=== PATIENT | female | born 1975 ===

== ENCOUNTER 2020-05-05 06:39 | Inpatient (IN) | payer MEDICARE, OTHER, SELFPAY ==
--- NOTE | 2020-05-05 | US_ITS ---
EXAMINATION: US ABDOMEN LIMITED CLINICAL INFORMATION: Right upper quadrant pain, question cholecystitis. COMPARISON: None TECHNIQUE: Real-time imaging of the right upper quadrant abdominal viscera. FINDINGS: PANCREAS: Unremarkable. LIVER: Unremarkable. GALLBLADDER: Gallstones are seen near the neck measuring 2.0 cm. A probable smaller stone measures 1.1 cm. There is no mural thickening or pericholecystic fluid. Common tail artifact is seen off of the superficial margin of the gallbladder COMMON BILE DUCT: Normal in caliber measuring 0.6 cm in diameter. RIGHT KIDNEY: 11.6 cm. An interpolar anechoic cyst measures 6.8 cm. Color Doppler showed no abnormal vascular flow. FREE FLUID: None. IMPRESSION: 1. Gallstones in the gallbladder neck do not appear significantly multiple, but the gallbladder is not significantly dilated and there is no evidence for acute cholecystitis. If the patient's symptoms persist or worsen, short-term repeat right upper quadrant ultrasound is recommended as clinically indicated to assess for change. Mild mural based artifact suggests incidental mild cholesterolosis. 2. Right renal cyst demonstrates benign features.
[2020-05-05 07:11] VITALS: BP 141/87; PULSE 108; RESP 18; TEMP 37; O2SAT 99; BMI 34.3
--- NOTE | 2020-05-05 07:11 | ED.ABDPAIN ---
HPI - Abdominal Pain General Chief Complaint: Abdominal Pain Stated Complaint: NAUSEA/VOMITING SIDE PAIN Time Seen by Provider: 05/05/20 07:10 Source: patient Mode of arrival: ambulatory Limitations: no limitations History of Present Illness HPI narrative: Patient with no prior abdominal pain history , been vomiting for last 4 days with pain in right upper quadrant patient denies any history of gallstones. Has history of kidney stone nonobstructive. No diarrhea no fever no chills no abdominal distension no yellow discoloration. For last 24 hour patient noticed she is not urinating as that much and has slight pain when she urinate Pertinent past history: none Onset (ago): day(s) (4) Pain Consistency: intermittent Location: RUQ Severity: moderate Quality: cramping Migration to: no migration Exacerbating factors: eating Relieving factors: nothing Associated symptoms: nausea and vomiting Related Data Patient : No Allergies Allergy/AdvReac Type Severity Reaction Status Date / Time No Known Allergies [NKA] Allergy Mild NOT Unverified 04/17/20 15:01 APPLICABLE Review of Systems Review of Systems . Constitutional : No Weight loss, No Fever, No Chills, No Night Sweats, No Fatigue, No Malaise ENT/Mouth : No Hearing loss, No Ear Pain, No Nasal Congestion, No Sinus Pain, No Hoarseness, No sore throat, No Rhinorrhea, No Swallowing Difficulty Eyes: No Eye Pain, No Swelling, No Redness, No Foreign Body, No Discharge, No Vision Changes Cardiovascular : No Chest Pain, No SOB, No Dyspnea on Exertion, No Orthopnea, No Edema, No Palpitations Respiratory : No Cough, No Sputum, No Wheezing, No Smoke Exposure, No Dyspnea Gastrointestinal : Positive Nausea, Positive Vomiting, -ve Diarrhea, positive abdominal Pain, No Hematochezia, No Melena Genitourinary : no irregular bleeding, No Dysuria, No Urinary Frequency, No Hematuria, No Urinary Incontinence, No Urgency, No Flank Pain, No Urinary Flow Changes, No Hesitancy Musculoskeletal : No joint pain, No Myalgias, No Joint Swelling Skin : No Skin Lesions, No rash Neuro : No Weakness, No Numbness, No Paresthesias, No Loss of Consciousness, No Dizziness, No Headache Psych : No Anxiety/Panic, No Depression, No SI/HI/AH/VH, No Social Issues, Heme/Lymph: No Bruising, No Bleeding,No Lymphadenopathy Endocrine : No Polyuria, No Polydipsia, No Temperature Intolerance Yes all other systems are reviewed and are negative Physical Exam Vital Signs and I&O and Narrative: Vital Signs and I&O: Vital Signs Temp 98.6 F 05/05/20 07:11 Pulse 83 05/05/20 10:57 Resp 16 05/05/20 10:57 BP 135/77 05/05/20 10:57 Pulse Ox 97 05/05/20 10:57 Intake & Output 05/04/20 05/05/20 05/05/20 18:59 06:59 18:59 Intake Total 1000 / 1000 Balance 1000 / 1000 Weight 79.832 kg Intake: Intake, IV Amoun t 1000 / 1000 0.9 % Sodium C hloride 1,000 ml 1000 / 1000 @ 999 mls/hr I VCONT .Q1H1M [facility] Rx#:[id number] Body Mass Index 34.3 Const: General: cooperative Nutritional Appearance: average body habitus Orientation/consciousness: oriented to person, oriented to place and oriented to time Limitations: no limitations HENMT: Head: Yes normal to inspection Ears: hearing grossly normal bilaterally Face and sinus: Yes normal facial exam Eyes: Conjunctivae: conjunctivae normal Sclerae: sclerae normal Resp: Effort & Inspection: normal respiratory effort Auscultation: clear to auscultation bilaterally Cardio: Palpation: normal PMI Rate: regular rate Rhythm: regular rhythm Heart sounds: S1 normal heart sound present and S2 normal heart sound present GI: Inspection: Yes normal to inspection Palpation (GI): Soft to palpation and Tenderness to palpation present (GI) in the RUQ; Bryan's sign negative and with no rebound tenderness Percussion: Yes normal to percussion Auscultation: normal bowel sounds : General: No CVA tenderness Back/Spine/Pelvis: Back: No CVA tenderness Neuro: General: oriented to person, oriented to place and oriented to time Course Course Course Narrative: patient ultrasound showed 2.0 cm gallstone sitting at the neck without significant obstruction at this time no signs of cholecystitis in the ultrasound LFTs are normal patient white counts are elevated and she is on prednisone but no change in dosage lately her usual white counts her around 12,000 and this time was 18,000. No fever no chills. patient been having increased pain for last 48 hours did did not eat anything since 16:00 yesterday and would like the surgery done if indicated. Case discussed with Dr. La surgeon will come and evaluate the patient MDM - Abdominal Pain MDM Narrative Medical decision making narrative: patient with vomiting for last 4 days with pain in right upper quadrant with no prior history of similar episodes. Withdrew the labs including liver functions and lipase. Will give IV fluids morphine for pain Zofran for nausea/vomiting will get ultrasound to rule out cholecystitis Differential Diagnosis Differential diagnosis: Likely gastroenteritis and gastritis Differential diagnosis narrative:: cholelithiasis/cholecystitis Lab Data Result diagrams: 05/05/20 07:26 05/05/20 07:26 Labs: Lab Results 05/05/20 05/05/20 05/05/20 Range/Units 07:26 07: 08:20 WBC 18.5 H (4.8-10.8) X10*3/uL RBC 4.99 (4.20-5.50) X10*6/uL Hgb 13.2 (12.0-16.0) g/dl Hct 40.9 (37-47) % MCV 82.0 (80-98) fL MCH 26.5 L (27.0-33.0) pg MCHC 32.3 (31.0-35.0) g/dl RDW 14.4 (11.0-16.0) % Plt Count 381 (160-400) X10*3/uL MPV 9.3 L (9.4-12.3) fL Immature Gran % (Auto) 0.6 H (0.0-0.4) % Neut % (Auto) 74.5 H (45-73) % Lymph % (Auto) 14.6 L (20-40) % [place] % (Auto) 8.4 (2-11) % Eos % (Auto) 1.2 (0-4) % Baso % (Auto) 0.7 (0-2) % Neut # (Auto) 13.8 H (2.0-8.3) X10*3/uL Lymph # (Auto) 2.7 (1.2-4.9) X10*3/uL [place] # (Auto) 1.6 H (0.1-1.2) X10*3/uL Eos # (Auto) 0.2 (0.0-0.4) X10*3/uL Baso # (Auto) 0.1 (0.0-0.2) X10*3/uL Abs Immat Gran (auto) 0.11 H (0.00-0.03) X10*3/uL Absolute Nucleated RBC 0.000 (0.0-0.012) X10*3/uL Nucleated RBC % (auto) 0.0 (0.0-0.2) /100WBC Smear Tech's Comments VERIFIED Sodium 138 (135-145) mmol/L Potassium 3.6 (3.3-5.1) mmol/l Chloride 105 (96-108) mmol/L Carbon Dioxide 22 (22-29) mmol/L Anion Gap 15 (12-20) BUN 11 (9-16) mg/dL Creatinine 0.66 (0.5-1.4) mg/dL Estim Creat Clear Calc 101.7 Estimated GFR > 60 Random Glucose 115 (60-115) mg/dL Calcium 8.8 (8.4-10.2) mg/dL Total Bilirubin 0.3 (0.0-1.0) mg/dL Direct Bilirubin < 0.2 (0.0-0.5) mg/dL AST 18 (5-31) U/L ALT 20 (0-31) U/L Alkaline Phosphatase 52 (39-117) U/L Total Protein 6.8 (6.5-8.0) g/dL Albumin 4.2 (3.5-5.0) g/dL Lipase 10 (8-78) U/L Urine Color STRAW Urine Appearance CLEAR Urine pH 6.5 (5.0-8.0) Ur Specific [place] 1.015 (1.005-1.025) Urine Protein NEG (NEG-TRACE) MG/DL Urine Glucose (UA) NEG (NEG) MG/DL Urine Ketones NEG (NEG) MG/DL Urine Blood 3+ H (NEG) Urine Nitrite NEG (NEG) Ur Leukocyte Esterase NEG (NEG) Urine RBC 1-4 (0) /HPF Urine WBC 0-2 (0-4) /HPF Ur Squamous Epith Cells TRACE /LPF Discharge Plan Discharge Clinical Impression: Biliary colic Cholelithiasis Qualifiers: Cholelithiasis location: gallbladder Cholecystitis presence: without cholecystitis Biliary obstruction: without biliary obstruction Qualified Code(s): K80.20 - Calculus of gallbladder without cholecystitis without obstruction Patient Disposition: Admitted As Inpatient Print Language: Tamazight [facility] Past Medical History Attestation statement: The following information was validated with the patient. Source: nursing notes reviewed Medical History Fibromyalgia Polymyositis Sleep apnea Social History Social History Smoked in Last 30 Days: No Use of substances other than those prescribed or required for medical reasons: No Advance Directives: No Advance Directives Information Provided: Yes
[2020-05-05 07:31] LABS: Basophils Absolute Auto 0.1 X10*3/uL (0.0-0.2); Basophils Percent Auto 0.7 % (0-2); Eosinophils Absolute Auto 0.2 X10*3/uL (0.0-0.4); Eosinophils Percent Auto 1.2 % (0-4); Hematocrit 40.9 % (37-47); Hemoglobin 13.2 g/dl (12.0-16.0); Imm Gran Abs Auto 0.11 X10*3/uL (0.00-0.03); Imm Gran Pct Auto 0.6 % (0.0-0.4); Lymphocytes Absolute Auto 2.7 X10*3/uL (1.2-4.9); Lymphocytes Percent Auto 14.6 % (20-40); MANUAL DIFF FLAG SCAN; Mean Corpuscular HGB Conc 32.3 g/dl (31.0-35.0); Mean Corpuscular Hemoglobin 26.5 pg (27.0-33.0); Mean Platelet Volume 9.3 fL (9.4-12.3); Monocytes Absolute Auto 1.6 X10*3/uL (0.1-1.2); Monocytes Percent Auto 8.4 % (2-11); Neutrophils Absolute Auto 13.8 X10*3/uL (2.0-8.3); Neutrophils Percent Auto 74.5 % (45-73); Platelet Count 381 X10*3/uL (160-400); Red Blood Count 4.99 X10*6/uL (4.20-5.50); Red Cell Distribution Width 14.4 % (11.0-16.0); SCAN SMEAR FLAG 1; White Blood Count 18.5 X10*3/uL (4.8-10.8)
[2020-05-05] MEDS: 0.9 % Sodium Chloride 1,000 ML 999 ML IVCONT (07:37)
[2020-05-05] MEDS: ondansetron HCL 4 MG/2 ML VIAL IVPUSH (07:38)
[2020-05-05] MEDS: Morphine Sulfate 4 MG/ML CARTRIDGE IVPUSH (07:38)
[2020-05-05 08:02] LABS: SLIDE REVIEW VERIFIED
[2020-05-05 08:03] LABS: Alanine Aminotransferase 20 U/L (0-31); Albumin Level 4.2 g/dL (3.5-5.0); Alkaline Phosphatase 52 U/L (39-117); Anion Gap 15 (12-20); Aspartate Amino Transferase 18 U/L (5-31); Bilirubin Direct < 0.2 mg/dL (0.0-0.5); Bilirubin Total 0.3 mg/dL (0.0-1.0); Blood Urea Nitrogen 11 mg/dL (9-16); Calcium 8.8 mg/dL (8.4-10.2); Carbon Dioxide 22 mmol/L (22-29); Chloride 105 mmol/L (96-108); Creatinine Clr Calc Pharmacy 101.7; Estimated Glomerular Filt Rate > 60; Glucose Random 115 mg/dL (60-115); Lipase 10 U/L (8-78); Potassium 3.6 mmol/l (3.3-5.1); Sodium 138 mmol/L (135-145); Total Protein 6.8 g/dL (6.5-8.0)
[2020-05-05 08:10] VITALS: BP 133/95
[2020-05-05 08:30] LABS: Glucose Urine UA NEG (NEG); Leukocyte Esterase Urine NEG (NEG); Nitrite Urine NEG (NEG); PH 6.5 (5.0-8.0); Specific Gravity - Urine 1.015 (1.005-1.025); Urine Blood 3+ (NEG); Urine Ketones NEG (NEG); Urine Protein NEG (NEG-TRACE)
[2020-05-05 08:33] LABS: Appearance Urine CLEAR; Color Urine STRAW
[2020-05-05 08:50] LABS: Squamous Epithelial Cell Urine TRACE /LPF; WBC Urine 0-2 /HPF (0-4)
--- NOTE | 2020-05-05 09:53 | PC.NURSE ---
DR JC IN TO SEE PT. PLAN IS TO CONSULT WITH SURGERY FOR GALL-STONES.
[2020-05-05 10:57] VITALS: BP 135/77; PULSE 83; RESP 16; O2SAT 97
--- NOTE | 2020-05-05 12:04 | P.HPGS_ITS ---
History of Present Illness History of Present Illness Chief complaint: NAUSEA/VOMITING SIDE PAIN <EBONY Cardona Last Filed: 05/05/20 12:59> Narrative: Bridget Renae is a 45 year old female who presented to the ED with complaints of RUQ abdominal pain, nausea and vomiting. This began last night. The pain woke her up out of sleep. She developed nausea and had multiple episodes of vomiting afterwards. The pain was sharp and radiated to her back. She denies fevers, chills, sick contacts. She began to feel better on Tuesday but developed the pain again on Tuesday and it progressively worsened prompting her to seek care in the ED. Work up revealed a WBC count of 18.5 with normal LFTs. She also had an ABD US which showed gallstones at the gallbladder neck without signs of acute cholecystitis. She reports persistence of the pain despite pain medications. She denies previous episodes of similar pain. <EBONY Cardona Last Filed: 05/05/20 12:59> Review of Systems Constitutional: Constitutional: Denies chills, Denies fever(s) and Reports weakness <EBONY Cardona Last Filed: 05/05/20 12:59> ENT: Reports dizziness <EBONY Cardona Last Filed: 05/05/20 12:59> Cardiovascular: Cardiovascular: Denies chest pain, Denies palpitations and Denies dyspnea <EBONY Cardona Last Filed: 05/05/20 12:59> Respiratory: Respiratory: Denies cough and Denies dyspnea <EBONY Cardona Last Filed: 05/05/20 12:59> Gastrointestinal: Gastrointestinal: Reports as per HPI, Denies melena, Denies hematochezia and Denies hematemesis <EBONY Cardona Last Filed: 05/05/20 12:59> Genitourinary: Genitourinary: Denies hematuria and Denies dysuria <EBONY Cardona Last Filed: 05/05/20 12:59> Musculoskeletal: Musculoskeletal: Denies numbness <YOLANDA Cardona Last Filed: 05/05/20 12:59> Integumentary/Breasts: Skin/Breast: Denies jaundice <Mary Owen PA-C - Last Filed: 05/05/20 12:59> Neurologic: Reports dizziness, Denies numbness and Reports weakness <Mary Owen PA-C - Last Filed: 05/05/20 12:59> Endocrine: Endocrine: Denies palpitations <Mary Owen PA-C - Last Filed: 05/05/20 12:59> PMFSH Past Medical History Medical History: Medical History (Updated 05/05/20 @ 14:51 by Antonio La MD) Fibromyalgia Polymyositis Sleep apnea <EBONY Cardona Last Filed: 05/05/20 12:59> Family History Pertinent family history: Denies <Mary Owen PA-C - Last Filed: 05/05/20 12:59> Surgical History Surgical History: Surgical History (Updated 05/05/20 @ 12:37 by Mary Owen PA-C) H/O dilation and curettage History of tubal ligation <EBONY Cardona Last Filed: 05/05/20 12:59> Social History Social History: Social History Smoked in Last 30 Days: No Use of substances other than those prescribed or required for medical reasons: No Advance Directives: No Advance Directives Information Provided: Yes <EBONY Cardona Last Filed: 05/05/20 12:59> Meds Allergies/Adverse reactions: Allergies Allergy/AdvReac Type Severity Reaction Status Date / Time No Known Allergies [NKA] Allergy Mild NOT Unverified 04/17/20 15:01 APPLICABLE <EBONY Cardona Last Filed: 05/05/20 12:59> Home medications: Home Medications Medication Instructions Recorded Confirmed Type clotrimazole 10 mg PO 5XD 05/05/20 05/05/20 History prednisone 10 mg PO DAILY 05/05/20 05/05/20 History <EBONY Cardona Last Filed: 05/05/20 12:59> Physical Exam Vital Signs and I&O and Narrative: Vital Signs and I&O: Vital Signs Temp 98.6 F 05/05/20 07:11 Pulse 83 05/05/20 10:57 Resp 16 05/05/20 10:57 BP 135/77 05/05/20 10:57 Pulse Ox 97 05/05/20 10:57 Intake & Output 05/04/20 05/05/20 05/05/20 18:59 06:59 18:59 Intake Total 1000 / 1000 Balance 1000 / 1000 Weight 176 lb Intake: Intake, IV Amoun t 1000 / 1000 0.9 % Sodium C hloride 1,000 ml 1000 / 1000 @ 999 mls/hr I VCONT .Q1H1M [facility] Rx#:[id number] Body Mass Index 34.3 <Mary Owen PA-C Last Filed: 05/05/20 12:59> Const: General: comfortable, no acute distress and alert <Mary Owen PA-C Last Filed: 05/05/20 12:59> Nutritional Appearance: well nourished <Mary Owen PA-C Last Filed: 05/05/20 12:59> Orientation/consciousness: patient oriented x3 <Mary Owen PA-C Filed: 05/05/20 12:59> Eyes: Sclerae: sclerae normal <Mary Owen PA-C Filed: 05/05/20 12:59> Neck: Neck: Yes normal visual inspection and Yes trachea midline <Mary Owen PA-C Last Filed: 05/05/20 12:59> Resp: Effort & Inspection: normal respiratory effort <Mary Owen PA-C Filed: 05/05/20 12:59> Auscultation: clear to auscultation bilaterally <Mary Owen PA-C Last Filed: 05/05/20 12:59> Cardio: Rate: regular rate <EBONY Cardona Filed: 05/05/20 12:59> Rhythm: regular rhythm <Mary Owen PA-C Filed: 05/05/20 12:59> GI: Palpation (GI): Soft to palpation, Tenderness to palpation present (GI) in the RUQ and Bryan's sign positive, no guarding, not rigid and No Rebound tenderness present <EBONY Cardona Last Filed: 05/05/20 12:59> Skin: General skin exam: no rashes or lesions noted and no jaundice <EBONY Cradona Last Filed: 05/05/20 12:59> Neuro: General: patient oriented x3 and moves all extremities <EBONY Cardona Last Filed: 05/05/20 12:59> Extrem: General: Yes no clubbing, cyanosis or edema <EBONY Cardona Last Filed: 05/05/20 12:59> Results Results Labs: Short CBC 05/05/20 Range/Units 07:26 WBC 18.5 H (4.8-10.8) X10*3/uL Hgb 13.2 (12.0-16.0) g/dl Hct 40.9 (37-47) % Plt Count 381 (160-400) X10*3/uL BMP 05/05/20 07:26 Sodium 138 Potassium 3.6 Chloride 105 Carbon Dioxide 22 BUN 11 Creatinine 0.66 Calcium 8.8 Liver Function 05/05/20 Range/Units 07:26 Total Bilirubin 0.3 (0.0-1.0) mg/dL Direct Bilirubin < 0.2 (0.0-0.5) mg/dL AST 18 (5-31) U/L ALT 20 (0-31) U/L Alkaline Phosphatase 52 (39-117) U/L Albumin 4.2 (3.5-5.0) g/dL Urine 05/05/20 Range/Units 08:20 Urine Color STRAW Urine Appearance CLEAR Urine pH 6.5 (5.0-8.0) Ur Specific [place] 1.015 (1.005-1.025) Urine Protein NEG (NEG-TRACE) MG/DL Urine Glucose (UA) NEG (NEG) MG/DL ABD US IMPRESSION: 1. Gallstones in the gallbladder neck do not appear significantly multiple, but the gallbladder is not significantly dilated and there is no evidence for acute cholecystitis. If the patient's symptoms persist or worsen, short-term repeat right upper quadrant ultrasound is recommended as clinically indicated to assess for change. Mild mural based artifact suggests incidental mild cholesterolosis. 2. Right renal cyst demonstrates benign features. <EBONY Cardona Last Filed: 05/05/20 12:59> Assessment and Plan (1) Cholelithiasis: Qualifiers: Biliary obstruction: without biliary obstruction Cholecystitis presence: without cholecystitis Cholelithiasis location: gal lbladder Qualified Code(s): K80.20 - Calculus of gallbladder without cholecystitis without obstruction <EBONY Cardona Last Filed: 05/05/20 12:59> Problem details: Patient seen and examined independently. She is tender on the right upper quadrant. She says she has been unable to have good oral intake 1st a few days because of her nausea with meals. She wants to proceed with cholecystectomy. I explained to her the technique of laparoscopic cholecystectomy and possible open cholecystectomy. I reviewed with her the risks including but not limited to bleeding, infections, injury to the liver, bowel, or bile duct, bile leak, blood clots, pneumonia, retained stones, as well as benefits and alternatives. She states she understands and has given consent. <EBONY Cardona Last Filed: 05/05/20 12:59> Status: Acute <EBONY Cardona Last Filed: 05/05/20 12:59> 45 year old female who presented to the ED with complaints of RUQ abdominal pain, nausea and vomiting with a leukocytosis and ABD US demonstrating gallstones at the gallbladder neck without pericholecystic fluid or gallbladder wall thickening. The patient has persistent pain and will be admitted to the surgical service for further treatment and observation. She was started on clear liquids, IVF and IV morphine and PO oxycodone for pain. Her leukocytosis and persistent pain are suggestive of early acute cholecystitis. Treatment options were discussed with the patient including observation and IV antibiotics versus proceeding with laparoscopic cholecystectomy, possible open. She elected to proceed with surgery. She will be added onto the OR schedule for tomorrow. <EBONY Matthew Last Filed: 05/05/20 12:59> Quality VTE Deep Vein Thrombosis/Pulmonary Embolism Present on Admission: No <Mary Owen PA-C - Last Filed: 05/05/20 12:59> VTE Risk Level: Low <EBONY Cardona Last Filed: 05/05/20 12:59> Documentation of Mechanical Device: Intermittent pneumatic compression boot <Mary Owen PA-C - Last Filed: 05/05/20 12:59>
--- NOTE | 2020-05-05 13:36 | PC.NURSE ---
Awaiting RN call back for report.
--- NOTE | 2020-05-05 14:00 | PC.NURSE ---
GAVE REPORT TO S3E
[2020-05-05 15:00] VITALS: BP 136/71; PULSE 92; RESP 19; TEMP 36.5
[2020-05-05 16:28] VITALS: BP 119/78; PULSE 85; RESP 19; TEMP 36.6; O2SAT 97
[2020-05-05] MEDS: Nystatin Oral Susp 500,000 UNIT/5 ML ORAL.SUSP 200000 UNIT BUCCAL ×2 (17:36→23:03)
[2020-05-05] MEDS: Lactated Ringers 1,000 ML 80 ML IVCONT (17:37)
[2020-05-05] MEDS: oxyCODONE HCl Immed Release 5 MG TABLET PO (17:45)
[2020-05-05 19:01] VITALS: BP 112/82; PULSE 86; RESP 19; TEMP 36.4; O2SAT 98
[2020-05-06] VITALS (12 sets, daily range): BP systolic 101–145; BP diastolic 61–90; PULSE 82–119; RESP 16–18; TEMP 36.1–36.7; O2SAT 87–99; BMI 34.3
[2020-05-06 07:33] LABS: MANUAL DIFF FLAG NO
[2020-05-06 07:40] LABS: Basophils Absolute Auto 0.1 X10*3/uL (0.0-0.2); Basophils Percent Auto 0.8 % (0-2); Eosinophils Absolute Auto 0.4 X10*3/uL (0.0-0.4); Eosinophils Percent Auto 3.6 % (0-4); Hematocrit 37.4 % (37-47); Hemoglobin 12.3 g/dl (12.0-16.0); Imm Gran Abs Auto 0.07 X10*3/uL (0.00-0.03); Imm Gran Pct Auto 0.6 % (0.0-0.4); Lymphocytes Absolute Auto 3.5 X10*3/uL (1.2-4.9); Lymphocytes Percent Auto 30.4 % (20-40); Mean Corpuscular HGB Conc 32.9 g/dl (31.0-35.0); Mean Corpuscular Hemoglobin 26.9 pg (27.0-33.0); Mean Corpuscular Volume 81.7 fL (80-98); Mean Platelet Volume 9.6 fL (9.4-12.3); Monocytes Absolute Auto 1.1 X10*3/uL (0.1-1.2); Neutrophils Absolute Auto 6.3 X10*3/uL (2.0-8.3); Neutrophils Percent Auto 54.6 % (45-73); Platelet Count 350 X10*3/uL (160-400); Red Blood Count 4.58 X10*6/uL (4.20-5.50); Red Cell Distribution Width 14.4 % (11.0-16.0); White Blood Count 11.4 X10*3/uL (4.8-10.8)
[2020-05-06] MEDS: Nystatin Oral Susp 500,000 UNIT/5 ML ORAL.SUSP 200000 UNIT BUCCAL ×4 (08:10→22:40)
[2020-05-06] MEDS: Lactated Ringers 1,000 ML 100 ML IVCONT (09:30)
--- NOTE | 2020-05-06 09:52 | MHC.SHP ---
Pre-Procedural Eval Section B Chief Complaint: NAUSEA/VOMITING SIDE PAIN Allergies: Allergies Allergy/AdvReac Type Severity Reaction Status Date / Time No Known Allergies [NKA] Allergy Mild NOT Unverified 04/17/20 15:01 APPLICABLE Plan Patient has been examined and remains a candidate for the planned procedure
--- NOTE | 2020-05-06 09:56 | HO.ANESPROP2 ---
[facility] Past Medical History Medical History Fibromyalgia Polymyositis Sleep apnea Surgical History Surgical History H/O dilation and curettage History of tubal ligation Social History Social History Household Members: Spouse Housing: Apartment Smoking Status: Never smoker Second Hand Smoke Exposure: No Meds Allergies Allergy/AdvReac Type Severity Reaction Status Date / Time No Known Allergies [NKA] Allergy Mild NOT Unverified 04/17/20 15:01 APPLICABLE Home Medications Medication Instructions Recorded Confirmed Type clotrimazole 10 mg PO 5XD 05/05/20 05/05/20 History prednisone 10 mg PO DAILY 05/05/20 05/05/20 History Exam Exam Date and Time: May 06, 2020 0956 Height,Weight and Vital Signs: Height 5 ft Weight 79.832 kg Last Vital Signs Temp 97.9 F 05/06/20 09:35 Pulse 94 05/06/20 09:35 Resp 18 05/06/20 09:35 BP 136/68 05/06/20 09:35 Pulse Ox 98 05/06/20 09:35 Pertinent Lab Results Pertinent Lab Results: Laboratory Tests 05/05/20 05/05/20 05/05/20 07:26 07:26 08:20 WBC 18.5 H RBC 4.99 Hgb 13.2 Hct 40.9 MCV 82.0 MCH 26.5 L MCHC 32.3 RDW 14.4 Plt Count 381 MPV 9.3 L Immature Gran % (Auto) 0.6 H Neut % (Auto) 74.5 H Lymph % (Auto) 14.6 L [place] % (Auto) 8.4 Eos % (Auto) 1.2 Baso % (Auto) 0.7 Neut # (Auto) 13.8 H Lymph # (Auto) 2.7 [place] # (Auto) 1.6 H Eos # (Auto) 0.2 Baso # (Auto) 0.1 Abs Immat Gran (auto) 0.11 H Absolute Nucleated RBC 0.000 Nucleated RBC % (auto) 0.0 Smear Tech's Comments VERIFIED Sodium 138 Potassium 3.6 Chloride 105 Carbon Dioxide 22 Anion Gap 15 BUN 11 Creatinine 0.66 Estim Creat Clear Calc 101.7 Estimated GFR > 60 Random Glucose 115 Calcium 8.8 Total Bilirubin 0.3 Direct Bilirubin < 0.2 AST 18 ALT 20 Alkaline Phosphatase 52 Total Protein 6.8 Albumin 4.2 Lipase 10 Urine Color STRAW Urine Appearance CLEAR Urine pH 6.5 Ur Specific [place] 1.015 Urine Protein NEG Urine Glucose (UA) NEG Urine Ketones NEG Urine Blood 3+ H Urine Nitrite NEG Ur Leukocyte Esterase NEG Urine RBC 1-4 Urine WBC 0-2 Ur Squamous Epith Cells TRACE 05/06/20 07:19 WBC 11.4 H RBC 4.58 Hgb 12.3 Hct 37.4 MCV 81.7 MCH 26.9 L MCHC 32.9 RDW 14.4 Plt Count 350 MPV 9.6 Immature Gran % (Auto) 0.6 H Neut % (Auto) 54.6 Lymph % (Auto) 30.4 [place] % (Auto) 10.0 Eos % (Auto) 3.6 Baso % (Auto) 0.8 Neut # (Auto) 6.3 Lymph # (Auto) 3.5 [place] # (Auto) 1.1 Eos # (Auto) 0.4 Baso # (Auto) 0.1 Abs Immat Gran (auto) 0.07 H Absolute Nucleated RBC 0.000 Nucleated RBC % (auto) 0.0 Smear Tech's Comments Sodium Potassium Chloride Carbon Dioxide Anion Gap BUN Creatinine Estim Creat Clear Calc Estimated GFR Random Glucose Calcium Total Bilirubin Direct Bilirubin AST ALT Alkaline Phosphatase Total Protein Albumin Lipase Urine Color Urine Appearance Urine pH Ur Specific [place] Urine Protein Urine Glucose (UA) Urine Ketones Urine Blood Urine Nitrite Ur Leukocyte Esterase Urine RBC Urine WBC Ur Squamous Epith Cells Airway Mallampati Class: II TM Dist: >3cm Neck ROM: Full Loose/Missing/Broken Teeth: Upper and Lower Heart: RRR Assessment and Plan Anesthetic Plan Anesthetic Plan: GA Disposition: Standard PACU
--- NOTE | 2020-05-06 11:07 | P.BOP_ITS ---
Brief Operative Note Date of procedure: 05/06/20 Pre-op diagnosis: gallstones Post-op diagnosis: other (acute calculous cholecystitis) Procedure: laparoscopic cholecystectomy Implants: None Anesthesia: MARTIN Surgeon: Antonio La Instructor Modeling: Mary Owen Estimated blood loss (mL): 20 IV fluids (mL): 900 (crystalloids) Pathology: other (gallbladder) Condition: stable Disposition: PACU
[2020-05-06] MEDS: ondansetron HCL 4 MG/2 ML VIAL IVPUSH (11:35)
[2020-05-06] MEDS: fentaNYL citrate/PF 100 MCG/2 ML VIAL 50 MCG IVPUSH (11:37)
[2020-05-06] MEDS: fentaNYL citrate/PF 100 MCG/2 ML VIAL 25 MCG IVPUSH (11:45)
[2020-05-06] MEDS: HYDROcodone Bit/Acetam 5/325 TABLET 1 TAB PO ×2 (13:20→18:32)
[2020-05-06] MEDS: Lactated Ringers 1,000 ML 80 ML IVCONT (13:23)
--- NOTE | 2020-05-06 14:36 | MHC.CM.PN ---
[employer] NOTE to having fibromylagia and polymiostitis she is independent kristie her qadls but there are days where she is very sow , tired ,in pain, she uses a cane for ambulationgcabn she has seep apnea and has a cpap machine from [facility].she reported sh is diaqbled and is on social security disability she has no vna ,no other services in the home she does not anticipate having the need for any vna at time of dischRGE DISCHAGRE PLAN HOME WITH NO SERVCIES SHE WILL CALL PCP FOR FOLLOW UP AFTER DISCHARGE AND FOLLOW UP WITH THER SURGE MEDICARE IMM GIVEN ON
--- NOTE | 2020-05-06 16:13 | PM.EVENT ---
Event Note Event Note: seen postop - lap itzel done earlier, uneventful appears comfortable but says her incisions hurt stable VS abd soft dressings dry she says she is not ready to be discharged today doing well postop otherwise pain mgt
--- NOTE | 2020-05-06 22:09 | OP_ITS ---
SURGEON: Antonio La MD INDICATIONS: The patient is a 45-year-old female, who has had right upper quadrant pain radiating to the back as well as nausea and vomiting for several days now. She eventually came to the emergency room. She was noted to have gallstones. There were no signs of acute cholecystitis, but the stones were seen to be at the neck of the gallbladder. In view of her persistent pain and inability to eat because of nausea, vomiting and scheduled her for cholecystectomy today. She understood technique of laparoscopic cholecystectomy and possible open. She was aware of the risks, benefits, and alternatives. PREOPERATIVE DIAGNOSIS: gallstones, with severe pain and nausea POSTOPERATIVE DIAGNOSIS: Acute calculous cholecystitis. PROCEDURE PERFORMED: Laparoscopic cholecystectomy. ESTIMATED BLOOD LOSS: COMPLICATIONS: ANESTHESIA: ASSISTANTS: Mary Owen PA-C. SPECIMENS: PREOPERATIVE DIAGNOSES: Gallstones with severe pain and nausea. DESCRIPTION OF PROCEDURE: She was brought to the operating room and placed supine on the table under general anesthesia via endotracheal tube. The abdomen was prepped and draped in the usual sterile fashion. The surgical time-out was done. The patient received Cefotan 2 g IV preoperatively. A short supraumbilical incision was made in the skin using blade #15, it was carried down to full-thickness skin and subcutaneous fat down to the fascia. The fascia was incised. The peritoneum was entered. Through this incision, a David port was introduced. Pneumoperitoneum was introduced to a pressure of 15 mmHg. From here on, the rest of the procedure was done under vision with the laparoscope. A 5/12 mm port was placed through a small incision in the epigastric area below the subcostal margin. A 5 mm port was introduced through a small stab incision below the subcostal margin along the anterior axillary line and the midclavicular line. Graspers were placed through these working ports. The patient was placed in head-up and [id number] position. The gallbladder was seen and was noted to be distended and very edematous consistent with acute cholecystitis. We were however able to apply grasper at the fundus and this was used to retract the gallbladder cephalad. Another grasper was placed at the pouch of the gallbladder and was used to retract the gallbladder laterally. At this point, the gallbladder was being retracted in a cephalad and lateral fashion to put the the area of the cystic duct on stretch. There was note of edematous, fibroareolar tissue surrounding the neck of the gallbladder, so had to carefully dissect this out using the [place] dissector. By doing so, we were able to see the cystic artery which actually was a little more anterior than the cystic duct. We carefully dissected the cystic artery and this was clearly identified. Clips were applied with 2 clips applied distally. The cystic artery was transected between clips. At this point, we had achieved a critical view of the hepatocystic triangle. The cystic duct was clearly seen. We continued to dissect this with the [place] dissector and we were able to confirm its confluence of the neck of the gallbladder. There were no other structures in the rest of the hilum. I proceeded to apply clips in the cystic duct with 2 clips applied distally. The cystic duct was transected between clips. I proceeded to carefully dissect the hilum with the [place] dissector to make sure that there were no other tubular structures seen. There was note of a thin branch of what appeared to be a vessel, so we had to clip this and transected ths also with the Endo scissors. At this point, we reached theinterface of the gallbladder and the liver bed. I used the electrocautery spatula to incise the peritoneum of the gallbladder and proceeded to do a combination of blunt dissection with the tip of the spatula as well as electrocautery to carefully separate the gallbladder wall from the liver bed. We proceeded gently with this dissection along a well-defined plane to separate the gallbladder wall from the liver bedall the way to the fundus. Eventually, I was able to separate the gallbladdercompletely and retrieved through an Endobag through the umbilical incision. I reinserted all ports and reinsufflated. We examined the area of dissection and subhepatic space. There was no sign of any bleeding or any bile leak. The clips appeared intact. I observed all four quadrants and there was no other pathology except for adhesions in the lower abdomen laterally. Again, we examined the subhepatic space.. With hemostasis ensured, I proceeded to then desufflate through the port sites. We removed all ports and the umbilical port was removed last. The fascia of the umbilical incision was closed with [id number] Dexon 0 stitch. Skin closure was achieved in all incisions using Dexon 4-0 subcuticular running sutures. Steri-Strips and dressings were applied. All incisions were infiltrated with Marcaine 0.5% for postop analgesia. The procedure was completed. The patient tolerated the procedure well. There were no complications noted. Initial and final counts of sponges and instruments were correct. Estimated blood loss was minimal. The patient was extubated without difficulty in the operating room and transferred to recovery room with stable vital signs. MD DERIK [place]/JIMENEZ / [id number] MTDD
[2020-05-07] VITALS: BP 102/64; PULSE 98; RESP 18; TEMP 36.1; O2SAT 95
[2020-05-07] MEDS: HYDROcodone Bit/Acetam 5/325 TABLET 1 TAB PO ×2 (00:13→08:30)
[2020-05-07] MEDS: Lactated Ringers 1,000 ML 80 ML IVCONT (00:15)
[2020-05-07 06:00] VITALS: BP 120/67; PULSE 87; RESP 18; TEMP 36.4; O2SAT 98
[2020-05-07 07:39] VITALS: BP 128/76; PULSE 74; RESP 18; TEMP 36.1; O2SAT 97
[2020-05-07] MEDS: predniSONE 10 MG TABLET PO (08:23)
[2020-05-07] MEDS: Nystatin Oral Susp 500,000 UNIT/5 ML ORAL.SUSP 200000 UNIT BUCCAL (08:23)
--- NOTE | 2020-05-07 09:02 | PM.PNGS ---
Subjective Subjective Interval history: Feels much better this morning. Having some incisional pain but comfortable with PO medication. Tolerating diet. Wants to go home. <Mary Owen PA-C - Last Filed: 05/07/20 09:06> Physical Exam Vital Signs and I&O and Narrative: Vital Signs and I&O: Vital Signs Temp 97.0 F 05/07/20 07:39 Pulse 74 05/07/20 07:39 Resp 18 05/07/20 07:39 BP 128/76 05/07/20 07:39 Pulse Ox 97 05/07/20 07:39 Intake & Output 05/06/20 05/07/20 05/07/20 18:59 06:59 18:59 Intake Total 3175.5 / 4544.833 1369.333 / 4544.83 3 Output Total 550 / 1352 802 / 1352 Balance 2625.5 / 3192.833 567.333 / 3192.833 Urine Output (Aver age ml/kg/hr) 0.57 0.84 Weight 176 lb Intake: Intake, Oral [place] unt 120 / 620 500 / 620 Intake, Other Am ount 1300 / 1300 Intake, IV Amoun t 1755.5 / 2624.833 869.333 / 2624.833 Acetaminophen 1,000 mg In 100 100 / 100 ml @ 400 mls/h r IV ONCE ONE Rx# :[id number] Promethazine H CL 12.5 mg In 0.9 50.5 / 50.5 % Sodium Chlor nimco 50 ml @ 202 mls/hr IV Q6H PRN Rx#: [id number] cefoTEtan diso d/Dextrose,Iso 2 50 / 50 gm In 50 ml @ 100 mls/hr IV PREOP ONE Rx#: [id number] Lactated Ringe rs 1,000 ml @ 80 1555 / 2424.333 869.333 / 2424.333 mls/hr IVCONT .[id number] RICHAR Rx#: [id number] Output: Output, Urine Am ount 550 / 1352 802 / 1352 Other: NPO No Dinner % Eaten 100% Evening Snack % Eaten 100 Urine Bathroom Bathroom Urine Color Pale Yellow Yellow Body Mass Index 34.3 <Mary Owen PA-C - Last Filed: 05/07/20 09:06> Const: General: comfortable, no acute distress and alert <EBONY Cardona Last Filed: 05/07/20 09:06> Orientation/consciousness: patient oriented x3 <Mary Owen PA-C Chanda Last Filed: 05/07/20 09:06> Eyes: Sclerae: sclerae normal <Mary Owen PA-C Last Filed: 05/07/20 09:06> Resp: Effort & Inspection: normal respiratory effort <Mary Owen PA-C Last Filed: 05/07/20 09:06> Cardio: Rate: regular rate <Mary Owen PA-C Chanda Last Filed: 05/07/20 09:06> GI: Inspection: No distended and Yes other (dressings intact) <EBONY Cardona Last Filed: 05/07/20 09:06> Palpation (GI): Soft to palpation, Tenderness to palpation present (GI) (incision sites, especially umbilical), not rigid and No Rebound tenderness present <Mary Owen PA-C Last Filed: 05/07/20 09:06> Skin: General skin exam: no rashes or lesions noted <Mary Owen PA-C Last Filed: 05/07/20 09:06> Neuro: General: patient oriented x3 <Mary Owen PA-C Chanda Last Filed: 05/07/20 09:06> Extrem: General: Yes no clubbing, cyanosis or edema <Mary Owen PA-C Last Filed: 05/07/20 09:06> Progress Note: A&P Assessment and plan (1) Acute cholecystitis due to biliary calculus: Status: Acute <EBONY Cardona Last Filed: 05/07/20 09:06> Assessment and Plan: feels much better says she is ready to go home tolerating diet abdomen soft, dressings dry anicteric sclerae okay to DC home today discharge instructions given Seen and examined independently - agree with ABY Owen <Antonio La MD - Last Filed: 05/07/20 09:18> (2) S/P laparoscopic cholecystectomy: Status: Acute <EBONY Cardona Last Filed: 05/07/20 09:06> Assessment and Plan: Doing well post op, comfortable and tolerating diet. VSS. Abd exam benign with appropriate post op tenderness. Patient feels ready for discharge. Will d/c to home today. F/u in office with Dr. La in 2 weeks. <Mary Owen PA-C - Last Filed: 05/07/20 09:06> Fall Risk Details Current Medications: Current Medications Generic Name Dose Route Start Last Admin Trade Name Freq PRN Reason Stop Dose Admin Hydrocodone Bitart/Acetaminophen 1 tab 05/06/20 13:01 05/07/20 08:30 Hydrocodone Bit/Acetam 5/325 Tablet PO 1 tab Q4H PRN Administration Pain, Moderate (Pain Scale 4-6 Lactated Ringer's 1,000 mls @ 80 mls/hr 05/05/20 10:30 05/07/20 00:15 Lr IVCONT 80 mls/hr .[id number] RICHAR Administration Promethazine HCl 12.5 mg/ 50.5 mls @ 202 mls/hr 05/06/20 11:34 05/06/20 15:01 Sodium Chloride IV Infused Q6H PRN Infusion Nausea Morphine Sulfate 3 mg 05/05/20 10:28 Morphine Sulfate 4 Mg/Ml Cartridge IVPUSH Q3H PRN Pain, Severe (Pain Scale 7-10) Nystatin 200,000 unit 05/05/20 17:00 05/07/20 08:23 Nystatin Oral Susp 500,000 Unit/5 Ml Oral.Susp BUCCAL 05/08/20 13:00 200,000 unit QID RICHAR Administration Protocol Ondansetron HCl 4 mg 05/05/20 10:29 05/06/20 11:35 Ondansetron Hcl 4 Mg/2 Ml Vial IVPUSH 4 mg Q8H PRN Administration nausea Prednisone 10 mg 05/06/20 09:00 05/07/20 08:23 Prednisone 10 Mg Tablet PO 05/18/20 08:59 10 mg DAILY RICHAR Administration Taper <EBONY Cardona Last Filed: 05/07/20 09:06> Time Spent With Patient Time: Total time spent is greater than 50% in coordination of care (as documented) at patient's floor/unit and/or counseling patient: <Mary Owen PA-C - Last Filed: 05/07/20 09:06> Time with patient: 15 - 24 minutes <Mary Owen PA-C - Last Filed: 05/07/20 09:06> Progress Note: Quality VTE Deep Vein Thrombosis/Pulmonary Embolism Present on Admission: No <Mary Owen PA-C - Last Filed: 05/07/20 09:06>
--- NOTE | 2020-05-07 09:03 | PM.PNGS ---
Subjective Subjective Patient reports: feels better Interval history: Much less pain tolerating diet states she is ready to go home Physical Exam Vital Signs and I&O and Narrative: Vital Signs and I&O: Vital Signs Temp 97.0 F 05/07/20 07:39 Pulse 74 05/07/20 07:39 Resp 18 05/07/20 07:39 BP 128/76 05/07/20 07:39 Pulse Ox 97 05/07/20 07:39 Intake & Output 05/06/20 05/07/20 05/07/20 18:59 06:59 18:59 Intake Total 3175.5 / 4544.833 1369.333 / 4544.83 3 Output Total 550 / 1352 802 / 1352 Balance 2625.5 / 3192.833 567.333 / 3192.833 Urine Output (Aver age ml/kg/hr) 0.57 0.84 Weight 176 lb Intake: Intake, Oral [place] unt 120 / 620 500 / 620 Intake, Other Am ount 1300 / 1300 Intake, IV Amoun t 1755.5 / 2624.833 869.333 / 2624.833 Acetaminophen 1,000 mg In 100 100 / 100 ml @ 400 mls/h r IV ONCE ONE Rx# :[id number] Promethazine H CL 12.5 mg In 0.9 50.5 / 50.5 % Sodium Chlor nimco 50 ml @ 202 mls/hr IV Q6H PRN Rx#: [id number] cefoTEtan diso d/Dextrose,Iso 2 50 / 50 gm In 50 ml @ 100 mls/hr IV PREOP ONE Rx#: [id number] Lactated Ringe rs 1,000 ml @ 80 1555 / 2424.333 869.333 / 2424.333 mls/hr IVCONT .[id number] RICHAR Rx#: [id number] Output: Output, Urine Am ount 550 / 1352 802 / 1352 Other: NPO No Dinner % Eaten 100% Evening Snack % Eaten 100 Urine Bathroom Bathroom Urine Color Pale Yellow Yellow Body Mass Index 34.3 Const: General: comfortable and no acute distress Eyes: Sclerae: sclerae normal Cardio: Rate: regular rate GI: Other: dressings dry Palpation (GI): Soft to palpation, no guarding and No Rebound tenderness present Progress Note: A&P Fall Risk Details Current Medications: Current Medications Generic Name Dose Route Start Last Admin Trade Name Freq PRN Reason Stop Dose Admin Hydrocodone Bitart/Acetaminophen 1 tab 05/06/20 13:01 05/07/20 08:30 Hydrocodone Bit/Acetam 5/325 Tablet PO 1 tab Q4H PRN Administration Pain, Moderate (Pain Scale 4-6 Lactated Ringer's 1,000 mls @ 80 mls/hr 05/05/20 10:30 05/07/20 00:15 Lr IVCONT 80 mls/hr .[id number] RICHAR Administration Promethazine HCl 12.5 mg/ 50.5 mls @ 202 mls/hr 05/06/20 11:34 05/06/20 15:01 Sodium Chloride IV Infused Q6H PRN Infusion Nausea Morphine Sulfate 3 mg 05/05/20 10:28 Morphine Sulfate 4 Mg/Ml Cartridge IVPUSH Q3H PRN Pain, Severe (Pain Scale 7-10) Nystatin 200,000 unit 05/05/20 17:00 05/07/20 08:23 Nystatin Oral Susp 500,000 Unit/5 Ml Oral.Susp BUCCAL 05/08/20 13:00 200,000 unit QID RICHAR Administration Protocol Ondansetron HCl 4 mg 05/05/20 10:29 05/06/20 11:35 Ondansetron Hcl 4 Mg/2 Ml Vial IVPUSH 4 mg Q8H PRN Administration nausea Prednisone 10 mg 05/06/20 09:00 05/07/20 08:23 Prednisone 10 Mg Tablet PO 05/18/20 08:59 10 mg DAILY RICHAR Administration Taper Time Spent With Patient Time: Total time spent is greater than 50% in coordination of care (as documented) at patient's floor/unit and/or counseling patient: Progress Note: Quality VTE Deep Vein Thrombosis/Pulmonary Embolism Present on Admission: No
--- NOTE | 2020-05-07 09:54 | PM.DS ---
DS: Providers Provider Date of admission: 05/05/20 10:21 <Mary Owen PA-C - Last Filed: 05/07/20 10:02> Primary care physician: Petey Macario MD <EBONY Cardona Last Filed: 05/07/20 10:02> Admitting clinician: Antonio La <EBONY Cardona Last Filed: 05/07/20 10:02> Consults: None <EBONY Cardona Last Filed: 05/07/20 10:02> DS: Diagnosis Discharge Diagnosis (1) Acute cholecystitis due to biliary calculus: Status: Acute <EBONY Cardona Filed: 05/07/20 10:02> (2) S/P laparoscopic cholecystectomy: Status: Acute <EBONY Cardona Last Filed: 05/07/20 10:02> DS: Summary Hospital Course Hospital Course: Brief HPI: Bridget Renae is a 45 year old female who presented to the ED with complaints of RUQ abdominal pain, nausea and vomiting. This began last night. The pain woke her up out of sleep. She developed nausea and had multiple episodes of vomiting afterwards. The pain was sharp and radiated to her back. She denies fevers, chills, sick contacts. She began to feel better on Tuesday but developed the pain again on Tuesday and it progressively worsened prompting her to seek care in the ED. Work up revealed a WBC count of 18.5 with normal LFTs. She also had an ABD US which showed gallstones at the gallbladder neck without signs of acute cholecystitis. She reports persistence of the pain despite pain medications. She denies previous episodes of similar pain. The patient was admitted to the surgical service under Dr. La. Treatment options were discussed with the patient including observation and abx versus proceeding with surgery. She elected to proceed with surgery and she was added onto the OR schedule for the following day. On 05/06/20, a laparoscopic cholecystectomy was performed by Dr. Antonio La without complication. The patient tolerated the procedure well and was admitted to the medical/surgical floor for observation. She had an uncomplicated recovery course. On POD #1, she felt well. She was comfortable on PO analgesics and tolerating a solid diet. She was clinically appearing well and her abdomen was benign with appropriate post op tenderness and dressings were intact. She felt ready for discharge. She was discharged to home on 05/07/20 in stable condition. <Mary Owen PA-C - Last Filed: 05/07/20 10:02> Status at Discharge Functional status at discharge: independent ambulation <Mary Owen PA-C - Last Filed: 05/07/20 10:02> Overall status at discharge: patient is progressing back to baseline <EBONY Cardona Last Filed: 05/07/20 10:02> Time Spent with Patient Time attestation: Total time spent providing and/or coordinating discharge services: <EBONY Cardona Last Filed: 05/07/20 10:02> Time spent: Less than 30 minutes <EBONY Cardona Last Filed: 05/07/20 10:02> Specific discharge activities: No heavy lifting (>20lbs) <Mary Owen PA-C - Last Filed: 05/07/20 10:02> Quality: VTE Documentation of Mechanical Device: Intermittent pneumatic compression boot <EBONY Cardona Last Filed: 05/07/20 10:02> Deep Vein Thrombosis/Pulmonary Embolism Present on Admission: No <EBONY Cardona Last Filed: 05/07/20 10:02> Physical Exam Vital Signs and I&O and Narrative: Vital Signs and I&O: Vital Signs Temp 97.0 F 05/07/20 07:39 Pulse 74 05/07/20 07:39 Resp 18 05/07/20 07:39 BP 128/76 05/07/20 07:39 Pulse Ox 97 05/07/20 07:39 Intake & Output 05/06/20 05/07/20 05/07/20 18:59 06:59 18:59 Intake Total 3175.5 / 4544.833 1369.333 / 4544.83 3 Output Total 550 / 1352 802 / 1352 Balance 2625.5 / 3192.833 567.333 / 3192.833 Urine Output (Aver age ml/kg/hr) 0.57 0.84 Weight 176 lb Intake: Intake, Oral [place] unt 120 / 620 500 / 620 Intake, Other Am ount 1300 / 1300 Intake, IV Amoun t 1755.5 / 2624.833 869.333 / 2624.833 Acetaminophen 1,000 mg In 100 100 / 100 ml @ 400 mls/h r IV ONCE ONE Rx# :[id number] Promethazine H CL 12.5 mg In 0.9 50.5 / 50.5 % Sodium Chlor nimco 50 ml @ 202 mls/hr IV Q6H PRN Rx#: [id number] cefoTEtan diso d/Dextrose,Iso 2 50 / 50 gm In 50 ml @ 100 mls/hr IV PREOP ONE Rx#: [id number] Lactated Ringe rs 1,000 ml @ 80 1555 / 2424.333 869.333 / 2424.333 mls/hr IVCONT .[id number] RICHAR Rx#: [id number] Output: Output, Urine Am ount 550 / 1352 802 / 1352 Other: NPO No Dinner % Eaten 100% Evening Snack % Eaten 100 Urine Bathroom Bathroom Urine Color Pale Yellow Yellow Body Mass Index 34.3 <Mary Owen PA-C Last Filed: 05/07/20 10:02> Const: General: comfortable, no acute distress and alert <EBONY Cardona Last Filed: 05/07/20 10:02> Orientation/consciousness: patient oriented x3 <EBONY Cardona Last Filed: 05/07/20 10:02> Eyes: Sclerae: sclerae normal <EBONY Cardona Last Filed: 05/07/20 10:02> Resp: Effort & Inspection: normal respiratory effort <EBONY Cardona Filed: 05/07/20 10:02> Cardio: Rate: regular rate <EBONY Cardona Last Filed: 05/07/20 10:02> GI: Inspection: No distended and Yes incision (dressings intact) <EBONY Cardona Last Filed: 05/07/20 10:02> Palpation (GI): Soft to palpation, Tenderness to palpation present (GI) (mild incisional), no guarding, not rigid and No Rebound tenderness present <EBONY Cardona Last Filed: 05/07/20 10:02> Skin: General skin exam: no rashes or lesions noted <EBONY Cardona Last Filed: 05/07/20 10:02> Neuro: General: patient oriented x3 <EBONY Cardona Last Filed: 05/07/20 10:02> Extrem: General: Yes no clubbing, cyanosis or edema <EBONY Cardona Last Filed: 05/07/20 10:02> DS: Data Additional Comments Additional comments: PATHOLOGY: PENDING. <EBONY Cardona Last Filed: 05/07/20 10:02> Discharge Plan Discharge Anticipated Discharge Date/Time: 05/07/20 09:06 <EBONY Cardona Last Filed: 05/07/20 10:02> Patient Disposition: Home, Self-Care <EBONY Cardona Last Filed: 05/07/20 10:02> Referrals: Antonio La MD [Physician] - 2 Weeks Po,Petey Oliveros MD [Primary Care Provider] - <EBONY Cardona Last Filed: 05/07/20 10:02> Discharge Medications: New hydrocodone-acetaminophen 5-325 mg tablet 1 - 2 tab PO Q4-6H PRN (Reason: pain) Qty: 20 RF: 0 Continued clotrimazole 10 mg topher 10 mg PO 5XD RF: 0 prednisone 10 mg tablet 10 mg PO DAILY RF: 0 <EBONY Cardona Last Filed: 05/07/20 10:02> Discharge Orders: Discharge Order (Routine); Ordered 05/07/20 Ordered By: Mary Owen <EBONY Cardona Last Filed: 05/07/20 10:02> Diet: advance to your usual diet and low fat, low cholesterol <EBONY Cardona Last Filed: 05/07/20 10:02> advance to your usual diet and low fat, low cholesterol <Antonio La MD - Last Filed: 05/08/20 13:46> Activity on Discharge: No heavy lifting <Mary Owen PA-C - Last Filed: 05/07/20 10:02> No heavy lifting <Antonio La MD - Last Filed: 05/08/20 13:46> Patient Instructions: Laparoscopic Cholecystectomy (DC) <Mary Owen PA-C - Last Filed: 05/07/20 10:02> Discharge Date/Time: 05/07/20 10:45 <EBONY Cardona Last Filed: 05/07/20 10:02> Print Language: Austrian <EBONY Cardona Last Filed: 05/07/20 10:02> Activity Restrictions/Additional Instructions: No heavy lifting or exercise x 2 weeks. No tub bath. No driving while taking narcotics. Ok to shower 05/08/20. Remove bandaids prior. You have steri strips (white cloth strips on your skin)- these will fall off ~1 week. Please call your doctor or come back to the emergency room should any new symptoms arise. If the incision area is tender, you may apply an ice pack for short intervals (No more than 20 minutes on, followed by at least 20 minutes off). Do not apply heat. Do not use creams, lotions, or topical antibiotics unless instructed to do so by your surgeon. These can cause infection or allergic reaction. Call Your Doctor If: -Your temperature exceeds 101.5? F -You experience excessive pain or swelling -You have an unexpected reaction to medication -You have excessive bleeding -You experience continued vomiting/nausea -Your incision begins to separate -Your incision shows signs of infection such as increased redness, swelling, excessive pain, drainage (light blood or clear fluid is normal) or heat <EBONY Cardona Last Filed: 05/07/20 10:02> Visit Report Forms: Patient Portal Discharge page <EBONY Cardona Last Filed: 05/07/20 10:02> Care Plan Goals: Return to baseline activity and health <EBONY Cardona Last Filed: 05/07/20 10:02> Health Concerns: acute cholecystitis, s/p laparoscopic cholecystectomy <Mary Owen PA-C - Last Filed: 05/07/20 10:02> Plan of Treatment: Advance diet, pain control, increase activity <Mary Owen PA-C - Last Filed: 05/07/20 10:02>
--- NOTE | 2020-05-07 11:24 | HO.POSTANES ---
Post Anesthesia Evaluation Post Anesthesia Evaluation Vital Signs: Vital Signs Temp Pulse Resp BP Pulse Ox 05/07/20 07:39 97.0 F 74 18 128/76 97 05/07/20 06:00 97.5 F 87 18 120/67 98 05/07/20 00:00 97 F 98 18 102/64 95 Anesthesia: General Mental Status: Awake Pain Control: Satisfactory Nausea/Vomiting: None Hydration: Adequate Anesthesia-Related Issues: No Anes. Related Issues
== END 2020-05-07 10:45 | disposition home or self-care (01) | DRG 419 ==
LOC: HO.ED 11:45 → HO.S3 12:38
PROVIDERS: Physician Assistant Surgical; Admitting Provider Surgery; Emergency Provider Internal Medicine; PCP Internal Medicine; Visit Provider Surgery
PROC: 0FT44ZZ Resection of Gallbladder, Percutaneous Endoscopic Approach (ICD-10-PCS; CPT 47562; principal; 2020-05-06 11:30)
DX: K80.01 Calculus of gallbladder with acute cholecystitis with obstruction (principal); G47.30 Sleep apnea, unspecified; M79.7 Fibromyalgia; Z79.52 Long term (current) use of systemic steroids; Z79.899 Other long term (current) drug therapy
CPT/HCPCS: 47562; 36415; 76705; 80048; 80076; 81001; 83690; 85025; 88304; 96361; 96374; 99284; 99285; J0131; J0330; J1100; J2250; J2270; J2405; J3010

== ENCOUNTER 2020-05-20 10:56 | Outpatient (REF) | payer MEDICARE, OTHER, SELFPAY ==
--- NOTE | 2020-05-20 11:01 | MM_ITS ---
EXAMINATION: MM SCREENING DIGITAL BREAST TOMOSYNTHESIS, BILATERAL CLINICAL INFORMATION: Screening. Asymptomatic. The lifetime risk of breast cancer based on the Tyrer-Cuzick Model is 7%. COMPARISON: Mammography: 10/18/2017, 03/10/2017, 09/02/2016, 08/13/2016 (BI-RADS 0, baseline). TECHNIQUE: Digital breast tomosynthesis is performed in both the craniocaudal and mediolateral oblique views along with computer-aided detection (CAD). Synthesized 2D images are generated from the tomosynthesis. FINDINGS: The breasts are heterogeneously dense, which may obscure small masses (ACR BI-RADS breast composition Category c). Parenchymal pattern is similar to prior studies. Again, there are scattered benign nodularity in each breast. There is no developing density or significant mass or architectural abnormality. Again, there are diffuse bilateral punctate calcifications, greater in number on the left. Calcifications are similar to prior studies. The axilla and skin contours are unremarkable. No significant changes. IMPRESSION: No significant changes from prior studies. ASSESSMENT: BI-RADS 2: Benign RECOMMENDATION: Routine annual mammography screening. This patient's information was entered into a reminder system with a target due date for their next mammogram.
== END 2020-05-20 10:57 | disposition home or self-care (01) ==
LOC: HO.MAMMO 10:56
PROVIDERS: PCP Internal Medicine; Visit Provider Internal Medicine
DX: Z12.31 Encounter for screening mammogram for malignant neoplasm of breast (principal)
CPT/HCPCS: 77063; 77067

== ENCOUNTER 2020-10-20 09:17 | Emergency (ER) | payer MEDICARE, OTHER, SELFPAY ==
--- NOTE | ~2020-10-20 | CT_ITS ---
EXAMINATION: CT ABDOMEN AND PELVIS WITHOUT CONTRAST CLINICAL INFORMATION: Right-sided abdominal pain. Right flank pain. COMPARISON: CT abdomen and pelvis 03/25/2008 TECHNIQUE: Multidetector volumetric imaging was performed from the superior aspect of the liver through the pubic symphysis. Sagittal and coronal reformatted images were obtained on the technologist's workstation. This CT examination was performed using dose optimization techniques as appropriate, variously including the following: *Automated exposure control *Adjustment of mA and/or kV according to patient size (this includes techniques or standardized protocols for targeted exams where dose is matched to indication/reason for exam; i.e. extremities or head) *Use of iterative reconstruction technique DLP: 746 mGy-cm FINDINGS: LUNG BASES: There is bibasilar atelectasis and/or scarring. LIVER, GALLBLADDER, AND BILIARY TREE: The liver is normal in size, shape, and attenuation. No focal hepatic lesion or biliary ductal dilatation is present. The gallbladder has been surgically removed. PANCREAS: Unremarkable. SPLEEN: Unremarkable. ADRENAL GLANDS: Unremarkable. KIDNEYS AND URETERS: The kidneys are normal in size, shape, and attenuation. There are multiple echogenic renal calculi measuring 4 mm cluster of 2 mm calculi in the lower pole calyx right kidney. There is a 4 mm partially obstructive radiopaque calculi right proximal ureter with mild hydronephrosis. There is a 4 mm radiopaque calculi upper pole cortex left kidney without caliectasis. There is no left-sided hydronephrosis. BLADDER: Unremarkable. GASTROINTESTINAL TRACT: There is moderate scattered stool, diverticuli and gas seen throughout the colon without mural thickening or distention. The small bowel loops are normal caliber. The appendix is normal caliber in the pelvis and the cecum is in the pelvis. No free air or inflammatory process seen. ABDOMINAL WALL: No significant hernia is appreciated. LYMPH NODES: Normal. VASCULAR: Unremarkable. PELVIC VISCERA: The uterus is midline. There are bilateral small hypodense areas in the ovary likely small follicular cysts. There is no free fluid. There are numerous linear calcifications seen throughout the buttock region, new since 2007 exam. OSSEOUS STRUCTURES: No lytic or sclerotic process seen. CT/CT abdomen pelvis wo con IMPRESSION: 4 mm partially obstructive calculi right proximal ureter with mild hydronephrosis. There are bilateral renal calculi. No left-sided hydronephrosis. Diffuse colonic diverticulosis without diverticulitis. Numerous hepatic calcifications new since 2007. Differential diagnoses includes calcified lipodystrophy, iatrogenic or atypical granulomas.
[2020-10-20 09:20] VITALS: BP 120/80; BP 159/76; PULSE 100; RESP 18; TEMP 36.6; O2SAT 99; BMI 35.2
--- NOTE | 2020-10-20 09:26 | ED_ITS ---
HPI - Abdominal Pain General Chief Complaint: Abdominal Pain Stated Complaint: VOMITING,LOW BACK PAIN Time Seen by Provider: 10/20/20 09:24 Source: EMS Mode of arrival: EMS Limitations: no limitations History of Present Illness HPI narrative: 45-year-old female with below noted past medical history including history of gastroesophageal reflux disease, anxiety/depression, gastroesophageal reflux disease, renal calculi and surgical history of cholecystectomy, tubal ligation who presents today with progressively worsening right-sided abdomen/flank pain since yesterday. Described pain as sharp and stabbing progressively getting worse with associated nausea and vomiting. Denies any recent travel or sick contacts. MD elicited complaint: abdominal pain and flank pain Pertinent past history: none Onset (ago): day(s) (Since yesterday) Pain Consistency: constant Location: R flank Severity: severe Pain scale (0-10): 10 Quality: stabbing Migration to: R flank Exacerbating factors: nothing Relieving factors: nothing Associated symptoms: nausea and vomiting Related Data Home Medications Medication Instructions Recorded Confirmed prednisone 10 mg PO DAILY 05/05/20 06/25/20 cholecalciferol (vitamin D3) 50 50 mcg PO DAILY 06/25/20 06/25/20 mcg (2,000 unit) capsule cranberry 400 mg capsule 400 mg PO DAILY 06/25/20 06/25/20 folic acid 1 mg tablet 1 mg PO DAILY 06/25/20 06/25/20 omeprazole magnesium 20 mg 20 mg PO DAILY 06/25/20 06/25/20 tablet,delayed release oxygen-air delivery systems MISCELLANEOUS 06/25/20 06/25/20 Previous Rx's Medication Instructions Recorded ibuprofen 800 mg PO Q8H PRN #30 tab 10/20/20 oxycodone 5 mg PO Q8H PRN 3 Days #10 tab 10/20/20 tamsulosin [Flomax] 0.4 mg PO DAILY #7 cap 10/20/20 Allergies Allergy/AdvReac Type Severity Reaction Status Date / Time No Known Allergies [NKA] Allergy Mild NOT Verified 06/25/20 11:21 APPLICABLE Review of Systems Review of Systems Constitutional: No Weight loss, No Fever, No Chills, No Night Sweats, No Fatigue, No Malaise ENT/Mouth: No Hearing loss, No Ear Pain, No Nasal Congestion, No Sinus Pain, No Hoarseness, No sore throat, No Rhinorrhea, No Swallowing Difficulty Eyes: No Eye Pain, No Swelling, No Redness, No Foreign Body, No Discharge, No Vision Changes Cardiovascular: No Chest Pain, No SOB, No Dyspnea on Exertion, No Orthopnea, No Edema, No Palpitations Respiratory: No Cough, No Sputum, No Wheezing, No Smoke Exposure, No Dyspnea Gastrointestinal: As noted per HPI, No Diarrhea, No Constipation,, No He matochezia, No Melena Genitourinary: no irregular bleeding, No Dysuria, No Urinary Frequency, No He maturia, No Urinary Incontinence, No Urgency, No Flank Pain, No Urinary Flow Changes, No Hesitancy Musculoskeletal: No joint pain, No Myalgias, No Joint Swelling Skin: No Skin Lesions, No rash Neuro: No Weakness, No Numbness, No Paresthesias, No Loss of Consciousness, No Dizziness, No Headache Psych: No Social Issues Heme/Lymph: No Bruising, No Bleeding,No Lymphadenopathy Endocrine: No Polyuria, No Polydipsia, No Temperature Intolerance Yes all other systems are reviewed and are negative Physical Exam Vital Signs: Vital Signs: Last Vital Signs Temp 98 F 10/20/20 09:20 Pulse 80 10/20/20 11:47 Resp 17 10/20/20 11:47 BP 131/78 10/20/20 11:47 Pulse Ox 99 10/20/20 11:47 Body Mass Index 35.2 Reviewed Const: General: other (Appears and pain grimacing and active nausea); No intoxicated appearing Nutritional Appearance: obese Orientation/consciousness: patient oriented x3 HENMT: Head: Yes normal to inspection Ears: hearing grossly normal bilaterally Eyes: General: appearance normal, both eyes and all related structures Visual Redd: normal visual redd by confrontation Neck: Neck: Yes normal visual inspection, No positive Brudzinski's sign, No positive Kernig's sign and No tender Thyroid: Thyroid normal Chest: Chest palpation & inspection: normal inspection of the chest Resp: Effort & Inspection: normal respiratory effort Auscultation: clear to auscultation bilaterally Cardio: Jugular venous distension: no JVD Rhythm: regular rhythm Heart sounds: S1 normal heart sound present and S2 normal heart sound present GI: Inspection: Yes normal to inspection Palpation (GI): Soft to palpation Percussion: Yes normal to percussion Auscultation: normal bowel sounds : General: Yes CVA tenderness on the right Skin: General skin exam: no rashes or lesions noted Neuro: General: patient oriented x3 Extrem: General: Yes normal to inspection Course Reevaluation(s) Reevaluation #1: 1917 In review 45-year-old female with above history presenting via EMS with complaint of progressively worsening right-sided abdomen/flank pain since yesterday with associated nausea and vomiting secondary to pain otherwise no symptoms. No recent travel or sick contacts. No fever. Appears to be uncomfortable, will check labs, abdominal pelvis CT rule out renal calculi/hydro/obstruction and treat with antiemetic and Toradol. At this time no signs or symptoms of systemic infection. Reevaluation #2: After 2 rounds of pain medication feels much better. Labs overall stable. 4 mm partially obstructive calculi right proximal ureter with mild hydronephrosis. Able tolerate p.o. intake well now. Offers no other complaints. Will send home with short course senses/analgesia and Flomax with plan for follow-up with Urology. Feels comfortable plan. Stable for discharge. MDM - Abdominal Pain Differential Diagnosis Differential diagnosis: Likely abdominal pain, calculus of kidney and renal colic; Unlikely aortic dissection, acute appendicitis, bowel perforation, constipation, diverticulitis, gastroenteritis, ovarian cyst, peptic ulcer disease and small bowel obstruction Medical Records Attestation: I reviewed the patient's medical records. Lab Data Attestation: I reviewed the patient's lab results. Result diagrams: 10/20/20 09:34 10/20/20 09:34 Labs: Lab Results 10/20/20 10/20/20 10/20/20 Range/Units 09:34 09:34 11:26 WBC 15.4 H (4.8-10.8) X10*3/uL RBC 4.99 (4.20-5.50) X10*6/uL Hgb 13.2 (12.0-16.0) g/dl Hct 41.2 (37-47) % MCV 82.6 (80-98) fL MCH 26.5 L (27.0-33.0) pg MCHC 32.0 (31.0-35.0) g/dl RDW 15.4 (11.0-16.0) % Plt Count 402 H (160-400) X10*3/uL MPV 9.1 L (9.4-12.3) fL Immature Gran % (Auto) 0.9 H (0.0-0.4) % Neut % (Auto) 56.9 (45-73) % Lymph % (Auto) 32.6 (20-40) % Atkinson % (Auto) 7.4 (2-11) % Eos % (Auto) 1.6 (0-4) % Baso % (Auto) 0.6 (0-2) % Lymph # (Auto) 5.0 H (1.2-4.9) X10*3/uL Atkinson # (Auto) 1.1 (0.1-1.2) X10*3/uL Eos # (Auto) 0.2 (0.0-0.4) X10*3/uL Baso # (Auto) 0.1 (0.0-0.2) X10*3/uL Abs Immat Gran (auto) 0.14 H (0.00-0.03) X10*3/uL Absolute Neuts (auto) 8.8 H (2.0-8.3) X10*3/uL Absolute Nucleated RBC 0.000 (0.0-0.012) X10*3/uL Nucleated RBC % (auto) 0.0 (0.0-0.2) /100WBC Smear Tech's Comments VERIFIED Sodium 141 (135-145) mmol/L Potassium 3.7 (3.3-5.1) mmol/L Chloride 104 (96-108) mmol/L Carbon Dioxide 25 (22-29) mmol/L Anion Gap 16 (12-20) BUN 11 (9-16) mg/dL Creatinine 0.78 (0.5-1.4) mg/dL Estim Creat Clear Calc 87.0 Estimated GFR > 60 Random Glucose 158 H D (60-115) mg/dL Calcium 9.0 (8.4-10.2) mg/dL Total Bilirubin < 0.2 (0.0-1.0) mg/dL AST 18 (5-31) U/L ALT 16 (0-31) U/L Alkaline Phosphatase 45 (39-117) U/L Total Protein 6.8 (6.5-8.0) g/dL Albumin 4.2 (3.5-5.0) g/dL Urine Color COLORLESS Urine Appearance CLEAR Urine pH 7.5 (5.0-8.0) Ur Specific [place] 1.020 (1.005-1.025) Urine Protein NEG (NEG-TRACE) MG/DL Urine Glucose (UA) NEG (NEG) MG/DL Urine Ketones NEG (NEG) MG/DL Urine Blood 1+ H (NEG) Urine Nitrite NEG (NEG) Ur Leukocyte Esterase NEG (NEG) Urine RBC 5-9 H (0) /HPF Urine WBC 0 (0-4) /HPF Ur Squamous Epith Cells NONE /LPF Urine Bacteria NONE /LPF Urine Test (NEGATIVE) 10/20/20 Range/Units 11:26 WBC (4.8-10.8) X10*3/uL RBC (4.20-5.50) X10*6/uL Hgb (12.0-16.0) g/dl Hct (37-47) % MCV (80-98) fL MCH (27.0-33.0) pg MCHC (31.0-35.0) g/dl RDW (11.0-16.0) % Plt Count (160-400) X10*3/uL MPV (9.4-12.3) fL Immature Gran % (Auto) (0.0-0.4) % Neut % (Auto) (45-73) % Lymph % (Auto) (20-40) % Atkinson % (Auto) (2-11) % Eos % (Auto) (0-4) % Baso % (Auto) (0-2) % Lymph # (Auto) (1.2-4.9) X10*3/uL Atkinson # (Auto) (0.1-1.2) X10*3/uL Eos # (Auto) (0.0-0.4) X10*3/uL Baso # (Auto) (0.0-0.2) X10*3/uL Abs Immat Gran (auto) (0.00-0.03) X10*3/uL Absolute Neuts (auto) (2.0-8.3) X10*3/uL Absolute Nucleated RBC (0.0-0.012) X10*3/uL Nucleated RBC % (auto) (0.0-0.2) /100WBC Smear Tech's Comments Sodium (135-145) mmol/L Potassium (3.3-5.1) mmol/L Chloride (96-108) mmol/L Carbon Dioxide (22-29) mmol/L Anion Gap (12-20) BUN (9-16) mg/dL Creatinine (0.5-1.4) mg/dL Estim Creat Clear Calc Estimated GFR Random Glucose (60-115) mg/dL Calcium (8.4-10.2) mg/dL Total Bilirubin (0.0-1.0) mg/dL AST (5-31) U/L ALT (0-31) U/L Alkaline Phosphatase (39-117) U/L Total Protein (6.5-8.0) g/dL Albumin (3.5-5.0) g/dL Urine Color Urine Appearance Urine pH (5.0-8.0) Ur Specific [place] (1.005-1.025) Urine Protein (NEG-TRACE) MG/DL Urine Glucose (UA) (NEG) MG/DL Urine Ketones (NEG) MG/DL Urine Blood (NEG) Urine Nitrite (NEG) Ur Leukocyte Esterase (NEG) Urine RBC (0) /HPF Urine WBC (0-4) /HPF Ur Squamous Epith Cells /LPF Urine Bacteria /LPF Urine Test NEGATIVE (NEGATIVE) Discharge Plan Discharge Clinical Impression: Calculus of kidney, Hydronephrosis concurrent with and due to calculi of kidney and ureter Patient Disposition: Home, Self-Care Instructions: Kidney Stones (ED), How to Strain Your Urine (ED) Additional Instructions: You have a 4 mm kidney stone in between the tubes of the kidney and the bladder almost at the point of passage and this is the cause of your pain today. At this size should be about a past this easily given that her pain has improved significantly you may have already passed this Strain your urine Home medication as prescribed For [id number] pain take ibuprofen For severe pain take oxycodone Follow-up with urologist as discussed Return if any concerns or worsening symptoms Thank you Prescriptions: New ibuprofen 800 mg tablet 800 mg PO Q8H PRN (Reason: pain) Qty: 30 RF: 0 oxycodone 5 mg tablet 5 mg PO Q8H PRN (Reason: pain) 3 Days Qty: 10 RF: 0 tamsulosin [Flomax] 0.4 mg capsule 0.4 mg PO DAILY Qty: 7 RF: 0 No Action prednisone 10 mg tablet 10 mg PO DAILY RF: 0 omeprazole magnesium [Prilosec OTC] 20 mg tablet,delayed release (DR/EC) 20 mg PO DAILY RF: 0 cholecalciferol (vitamin D3) 50 mcg (2,000 unit) capsule 50 mcg PO DAILY RF: 0 cranberry 400 mg capsule 400 mg PO DAILY RF: 0 folic acid 1 mg tablet 1 mg PO DAILY RF: 0 oxygen-air delivery systems miscellaneous RF: 0 Referrals: Harsha Kirby MD [Physician] - 1 week [facility] Past Medical History Medical History Anxiety and depression Cholelithiasis Fibromyalgia GERD (gastroesophageal reflux disease) History of renal calculi Obesity (BMI 30-39.9) Obstructive sleep apnea Osteopenia Polymyositis Sleep apnea Surgical History H/O dilation and curettage History of tubal ligation S/P laparoscopic cholecystectomy Family History Family History (Updated 06/20/20 @ 06:20 by Ritu Fernando [facility]) Father Type II diabetes mellitus Mother No problems noted. Maternal Aunt Leukemia Breast cancer Social History Social History (Updated 06/25/20 @ 11:26 by Petey Macario MD) Household Members: Spouse Housing: Apartment Alcohol intake: never Smoking Status: Never smoker Second Hand Smoke Exposure: No Advance Directives: No Advance Directives Information Provided: No service: No Current occupational status: disabled
[2020-10-20] MEDS: Ketorolac Tromethamine 30 MG/ML VIAL IVPUSH (09:37)
[2020-10-20] MEDS: ondansetron HCL 4 MG/2 ML VIAL IVPUSH (09:37)
[2020-10-20] MEDS: 0.9 % Sodium Chloride 1,000 ML 999 ML IV (09:39)
[2020-10-20 09:40] LABS: Basophils Absolute Auto 0.1 X10*3/uL (0.0-0.2); Basophils Percent Auto 0.6 % (0-2); Eosinophils Absolute Auto 0.2 X10*3/uL (0.0-0.4); Eosinophils Percent Auto 1.6 % (0-4); Hematocrit 41.2 % (37-47); Hemoglobin 13.2 g/dl (12.0-16.0); Imm Gran Abs Auto 0.14 X10*3/uL (0.00-0.03); Imm Gran Pct Auto 0.9 % (0.0-0.4); Lymphocytes Percent Auto 32.6 % (20-40); MANUAL DIFF FLAG SCAN; Mean Corpuscular Hemoglobin 26.5 pg (27.0-33.0); Mean Corpuscular Volume 82.6 fL (80-98); Mean Platelet Volume 9.1 fL (9.4-12.3); Monocytes Absolute Auto 1.1 X10*3/uL (0.1-1.2); Monocytes Percent Auto 7.4 % (2-11); Neutrophils Absolute Auto 8.8 X10*3/uL (2.0-8.3); Neutrophils Percent Auto 56.9 % (45-73); Platelet Count 402 X10*3/uL (160-400); Red Blood Count 4.99 X10*6/uL (4.20-5.50); Red Cell Distribution Width 15.4 % (11.0-16.0); SCAN SMEAR FLAG 1; White Blood Count 15.4 X10*3/uL (4.8-10.8)
[2020-10-20 10:03] LABS: SLIDE REVIEW VERIFIED
[2020-10-20 10:13] LABS: Alanine Aminotransferase 16 U/L (0-31); Albumin Level 4.2 g/dL (3.5-5.0); Alkaline Phosphatase 45 U/L (39-117); Anion Gap 16 (12-20); Aspartate Amino Transferase 18 U/L (5-31); Bilirubin Total < 0.2 mg/dL (0.0-1.0); Blood Urea Nitrogen 11 mg/dL (9-16); Carbon Dioxide 25 mmol/L (22-29); Chloride 104 mmol/L (96-108); Estimated Glomerular Filt Rate > 60; Glucose Random 158 mg/dL (60-115); Potassium 3.7 mmol/L (3.3-5.1); Sodium 141 mmol/L (135-145); Total Protein 6.8 g/dL (6.5-8.0)
[2020-10-20] MEDS: HYDROmorphone HCl 0.5 MG/0.5 ML SYRINGE IVPUSH ×2 (10:24→11:19)
--- NOTE | 2020-10-20 10:27 | PC.NURSE ---
pain at 05/10 now w vomitting, medicated w dilaudid,
[2020-10-20 10:38] VITALS: BP 131/78; PULSE 89; RESP 17; O2SAT 99
[2020-10-20] MEDS: Tamsulosin HCL 0.4 MG CAPSULE PO (11:19)
[2020-10-20] MEDS: Metoclopramide HCl 10 MG/2 ML VIAL IVPUSH (11:19)
[2020-10-20 11:41] LABS: Glucose Urine UA NEG (NEG); Leukocyte Esterase Urine NEG (NEG); Nitrite Urine NEG (NEG); PH 7.5 (5.0-8.0); Urine Blood 1+ (NEG); Urine Ketones NEG (NEG); Urine Protein NEG (NEG-TRACE)
[2020-10-20 11:44] LABS: Appearance Urine CLEAR; Color Urine COLORLESS
[2020-10-20 11:46] LABS: UPreg QC Valid YES; Urine Pregnancy NEGATIVE (NEGATIVE)
[2020-10-20 11:47] VITALS: BP 131/78; PULSE 80; RESP 17; O2SAT 99
[2020-10-20 12:44] LABS: WBC Urine 0 /HPF (0-4)
[2020-10-20 13:48] VITALS: BP 133/74; PULSE 77; RESP 19; O2SAT 99
== END 2020-10-20 14:12 | disposition home or self-care (01) ==
PROVIDERS: Nurse Practitioner Primary Care; Emergency Provider Emergency Medicine; PCP Internal Medicine
DX: N13.2 Hydronephrosis with renal and ureteral calculous obstruction (principal); R11.2 Nausea with vomiting, unspecified; Z87.442 Personal history of urinary calculi
CPT/HCPCS: 36415; 74176; 80053; 81001; 81025; 85025; 96361; 96374; 96375; 96376; 99283; 99284; J1170; J1885; J2405; J2765

== ENCOUNTER → 2020-10-28 11:06 | Outpatient (BNVA) | payer MEDICARE, SELFPAY | PROVIDERS: PCP Internal Medicine; Visit Provider Urology | DX: Z13.89 Encounter for screening for other disorder (principal) | CPT/HCPCS: Q3014 ==

== ENCOUNTER 2020-12-22 12:24 | Outpatient (REF) | payer MEDICARE, OTHER, SELFPAY ==
--- NOTE | ~2020-12-22 | US_ITS ---
EXAMINATION: US RETROPERITONEAL LIMITED (RENAL ONLY) CLINICAL INFORMATION: Calculus of kidney. COMPARISON: CT abdomen and pelvis without contrast dated 10/20/2020. Ultrasound abdomen limited dated 05/05/2020. KUB dated 10/29/2010. Bilateral renal ultrasound dated 04/12/2008. TECHNIQUE: Real-time imaging of the kidneys. FINDINGS: RIGHT KIDNEY: 12.5 x 8.3 x 5.7 cm (SAG x AP x TRV). The kidney is normal in size, contour, and echogenicity. Renal cortical thickness is normal. No hydronephrosis. There is anechoic cyst in the midpole measuring 6.8 x 5.7 x 5.3 cm in cyst in upper pole measuring 0.6 x 0.8 x 0.5 cm. There are echogenic stones. In midpole stone measuring 0.7 x 0.6 x 0.3 cm and a lower pole stone measuring 0.5 x 0.5 x 0.5 cm. LEFT KIDNEY: 11.0 x 6.9 x 5.7 cm (SAG x AP x TRV). The kidney is normal in size, contour, and echogenicity. Renal cortical thickness is normal. No renal calculi or hydronephrosis. There is anechoic cyst midpole measuring 1.0 x 0.7 x 1.0 cm. US/US renal BI IMPRESSION: Bilateral renal cysts. Nonobstructive echogenic stones in the midpole and lower pole right kidney.
== END 2020-12-22 12:25 | disposition home or self-care (01) ==
LOC: HO.US 12:24
PROVIDERS: PCP Internal Medicine; Visit Provider Urology
DX: N20.0 Calculus of kidney (principal)
CPT/HCPCS: 76775

== ENCOUNTER 2022-09-28 10:02 | Outpatient (REF) | payer OTHER, SELFPAY ==
[2022-09-28 11:24] LABS: Appearance Urine Clear; Color Urine Dark Yellow; Glucose Urine UA Negative (Negative); Leukocyte Esterase Urine Moderate (2+) (Negative); Nitrite Urine Positive (Negative); PH 6.5 (5.0-9.0); UMIC TRIGGER UACC YES; Urine Blood Small (1+) (Negative); Urine Ketones Trace mg/dL (Negative); Urine Protein Negative (Neg-Trace)
[2022-09-28 11:43] LABS: Bacteria Urine 1+ (None Seen); Hyaline Casts Urine 0-2 /LPF (0-2); UACC Culture Trigger YES; WBC Urine 0-5 /HPF (0-5)
== END 2022-09-28 10:03 | disposition home or self-care (01) ==
LOC: HO.LAB 10:02
PROVIDERS: PCP Internal Medicine; Visit Provider Internal Medicine
DX: N20.0 Calculus of kidney (principal)
CPT/HCPCS: 81001; 87086

== ENCOUNTER 2023-09-24 09:56 | Emergency (ER) | payer OTHER, SELFPAY ==
--- NOTE | ~2023-09-24 | US_ITS ---
EXAMINATION: US PELVIS CLINICAL INFORMATION: Bleeding. Post LEEP COMPARISON: CT of the abdomen and pelvis September 2020 TECHNIQUE: Ultrasound of the pelvis is performed using both transabdominal and transvaginal transducers along with Doppler. Transvaginal imaging is performed due to inadequate visualization transabdominally. FINDINGS: The uterus is anteverted and measures 9.5 x 4.2 x 4.9 cm in dimension. The endometrium does not appear thickened. Double thickness endometrium measures 0.5 cm. There is fluid in the endometrial cavity. No focal uterine lesion. There is hypoechoic soft tissue in the endocervical canal probably representing blood clot measuring 3.3 x 2.0 x 3.1 cm. Ovaries not seen. No fluid in the pelvis. US/US pelvic and transvaginal IMPRESSION: Hypoechoic soft tissue in the endocervical canal probably representing blood clot. Fluid in the endometrial cavity.
[2023-09-24 09:58] VITALS: BP 148/88; PULSE 99; RESP 16; TEMP 36.6; O2SAT 98; BMI 25.5
[2023-09-24 10:17] LABS: MANUAL DIFF FLAG NO
[2023-09-24 10:18] LABS: Basophils Absolute Auto 0.1 X10*3/uL (0.0-0.2); Basophils Percent Auto 0.6 % (0-2); Eosinophils Absolute Auto 0.3 X10*3/uL (0.0-0.4); Eosinophils Percent Auto 1.9 % (0-4); Hematocrit 40.7 % (37.0-47.0); Hemoglobin 13.1 g/dl (12.0-16.0); Imm Gran Abs Auto 0.08 X10*3/uL (0.00-0.03); Imm Gran Pct Auto 0.6 % (0.0-0.4); Mean Corpuscular HGB Conc 32.2 g/dl (31.0-35.0); Mean Corpuscular Hemoglobin 26.1 pg (27.0-33.0); Mean Corpuscular Volume 81.2 fL (80.0-98.0); Mean Platelet Volume 9.3 fL (9.4-12.3); Monocytes Absolute Auto 0.7 X10*3/uL (0.1-1.2); Neutrophils Absolute Auto 10.4 x10*3/uL (2.0-8.3); Neutrophils Percent Auto 76.9 % (45-73); Platelet Count 365 X10*3/uL (160-400); Red Blood Count 5.01 X10*6/uL (4.20-5.50); Red Cell Distribution Width 15.1 % (11.0-16.0); White Blood Count 13.6 X10*3/uL (4.8-10.8)
[2023-09-24 10:35] LABS: Alanine Aminotransferase 20 U/L (0-31); Albumin Level 4.1 g/dL (3.5-5.0); Alkaline Phosphatase 52 U/L (39-117); Anion Gap 14 (12-20); Aspartate Amino Transferase 22 U/L (5-31); Bilirubin Total 0.3 mg/dL (0.0-1.0); Blood Urea Nitrogen 15 mg/dL (9-16); Calcium 9.3 mg/dL (8.4-10.2); Carbon Dioxide 25 mmol/L (22-29); Chloride 107 mmol/L (96-108); Creatinine Clr Calc Pharmacy 92.9; Estimated Glomerular Filt Rate > 60; Glucose Random 111 mg/dL (60-115); Potassium 3.7 mmol/L (3.3-5.1); Sodium 142 mmol/L (135-145)
--- NOTE | 2023-09-24 11:40 | ED.GENADULT ---
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 She tells me her testing was all negative for malignancy and she was recommended to have routine yearly follow-up. She had been doing well but has had some irregular vaginal bleeding since the procedure. She denies any vomiting, fever, urinary symptoms, diarrhea or constipation. Related Data Home Medications Medication Instructions Recorded Confirmed cholecalciferol (vitamin D3) 50 50 mcg PO DAILY 06/25/20 10/13/22 mcg (2,000 unit) capsule cranberry 400 mg capsule 400 mg PO DAILY 06/25/20 10/13/22 folic acid 1 mg tablet 1 mg PO DAILY 06/25/20 10/13/22 omeprazole magnesium 20 mg 20 mg PO DAILY 06/25/20 10/13/22 tablet,delayed release (Prilosec OTC) oxygen-air delivery systems miscellaneous 06/25/20 10/13/22 [Horizon Nasal Cpap System] prednisone 1 mg tablet 4 mg PO QAM 10/13/22 10/13/22 prednisone 5 mg tablet 10 mg PO QAM 10/13/22 10/13/22 Previous Rx's Medication Instructions Recorded azithromycin 250 mg tablet See Rx Instructions PO .COMPLEX #6 10/13/22 tabs benzonatate 100 mg capsule 100 mg PO TID PRN cough #21 caps 10/13/22 fluticasone propionate 50 1 spray intranasal DAILY #100 mL 10/13/22 mcg/actuation nasal spray,suspension (Flonase Allergy Relief) doxycycline monohydrate 100 mg 100 mg PO BID #14 caps 09/24/23 capsule metronidazole 500 mg tablet 500 mg PO BID 7 days #14 tabs 09/24/23 Allergies Allergy/AdvReac Type Severity Reaction Status Date / Time sulfamethoxazole Allergy Rash Verified 09/24/23 09:57 [From Bactrim] trimethoprim [From Bactrim] Allergy Rash Verified 09/24/23 09:57 Review of Systems Review of Systems: Yes all other systems are reviewed and are negative Constitutional: Constitutional: Reports no additional constitutional complaints, Denies body ache(s), Denies chills, Denies fever(s), Denies headache(s) and Denies weakness Eyes: Eyes: Reports no additional eye complaints and Denies change in vision ENT: Reports system reviewed and no additional complaints, except as documented, Denies dizziness, Denies headache(s), Denies nasal congestion, Denies nasal discharge and Denies neck pain Cardiovascular: Cardiovascular: Reports no additional cardiovascular complaints, Denies chest pain, Denies leg edema and Denies dyspnea Respiratory: Respiratory: Reports no additional respiratory complaints, Denies cough and Denies dyspnea Gastrointestinal: Gastrointestinal: Reports no additional gastrointestinal complaints, Reports abdominal pain, Denies diarrhea, Denies nausea and Denies vomiting Genitourinary: Genitourinary: Reports no additional female genitourinary complaints, Reports abnormal vaginal bleeding and Denies urinary incontinence Musculoskeletal: Musculoskeletal: Reports no additional musculoskeletal complaints, Reports back pain, Denies arthralgias, Denies joint swelling, Denies neck pain, Denies numbness and Denies tingling Integumentary/Breasts: Skin/Breast: Reports system reviewed and no additional complaints, except as docu and Denies rash Neurologic: Reports system reviewed and no additional complaints, except as documented, Denies Abnormal speech present, Denies dizziness, Denies headache(s), Denies numbness, Denies tingling and Denies weakness PMFSH Past Medical History Attestation statement: The following information was validated with the patient. Source: old records reviewed and nursing notes reviewed Medical History Osteopenia History of renal calculi Anxiety and depression Obesity (BMI 30-39.9) GERD (gastroesophageal reflux disease) Obstructive sleep apnea Cholelithiasis Sleep apnea Fibromyalgia Polymyositis Surgical History S/P laparoscopic cholecystectomy H/O dilation and curettage History of tubal ligation Family History Family History Father Type II diabetes mellitus Mother No problems noted. Maternal Aunt Leukemia Breast cancer Social History Social History Household Members: Spouse Housing: Apartment Do you presently have visiting nurse or other home services: No Alcohol intake: never Patient Tobacco Use Status: Never used Tobacco Second Hand Smoke Exposure: No Advance Directives: No service: No Current occupational status: disabled Cognitive needs: No Hearing needs: No Vision needs: No Physical Exam ED Vital Signs: Vital Signs - 24 hr 09/24/23 09:58 09/24/23 13:56 Temperature 97.9 F 98.4 F Pulse Rate 99 73 Respiratory Rate 16 16 Blood Pressure 148/88 H 128/78 Pulse Oximetry 98 98 Oxygen Delivery Method Room Air Room Air BMI result Body Mass Index 25.5 Const General: cooperative, healthy appearing, comfortable and no acute distress Orientation/consciousness: patient oriented x3 Limitations: no limitations HENMT Head: Yes normal to inspection Ears: hearing grossly normal bilaterally General nose exam: Normal external nose present Face and sinus: Yes normal facial exam Mouth: Normal oral and palatal mucosa present Throat: Yes posterior oropharynx normal Eyes General: appearance normal, both eyes and all related structures Pupils: Equal, round and reactive pupils present Neck Neck: Yes normal visual inspection Chest Chest palpation & inspection: normal inspection of the chest Resp Effort & Inspection: normal respiratory effort Auscultation: clear to auscultation bilaterally Cardio Rate: regular rate Rhythm: regular rhythm Peripheral pulses: Peripheral pulses 2+ throughout GI Inspection: Yes normal to inspection Palpation (GI): Soft to palpation, Tenderness to palpation present (GI) suprapubicly; with no rebound tenderness and no guarding Auscultation: normal bowel sounds Other: [facility] tech present External Female Exam: normal external appearance Speculum Exam - Vagina: vaginal bleeding Speculum Exam - Cervix: normal appearance of the cervix Bimanual exam- vagina & uterus: cervical motion tenderness Bimanual Exam- Adnexa, other: normal adnexae and no tenderness OB/external & speculum: vaginal bleeding Back/Spine/Pelvis Thoracic/Lumbar Spine: thoracic and lumbar spine normal to inspection Skin General skin exam: no rashes or lesions noted Neuro General: patient oriented x3, no focal motor deficits and normal sensation to monofilament Cranial nerves: Yes Equal, round and reactive pupils present Cognition (Neuro): normal cognition Speech: No Abnormal speech present Gait exam (Neuro): Normal gait present Motor exam (neuro): 5/5 motor strength present throughout Extrem General: Yes normal to inspection Course Course Course Narrative: This is an RME: Additional HPI, ROS, PE not included below will be deferred to primary provider. Patient is a 48-year-old female who presents to the emergency department for evaluation of left lower back pain radiating to ABD with vaginal spotting. Plan: labs, U/A Reevaluation(s) Reevaluation #1: US shows FINDINGS: The uterus is anteverted and measures 9.5 x 4.2 x 4.9 cm in dimension. The endometrium does not appear thickened. Double thickness endometrium measures 0.5 cm. There is fluid in the endometrial cavity. No focal uterine lesion. There is hypoechoic soft tissue in the endocervical canal probably representing blood clot measuring 3.3 x 2.0 x 3.1 cm. Ovaries not seen. No fluid in the pelvis. US/US pelvic and transvaginal IMPRESSION: Hypoechoic soft tissue in the endocervical canal probably representing blood clot. Fluid in the endometrial cavity. Labs are unremarkable. Urine shows no signs of infection. Exam is c/w with cervicitis w/ recent instrumentation. Will treat with flagyl/doxycycline with recommendation to follow-up outpatient with gynecology as needed. Reviewed worrisome signs and symptoms of when to return to the emergency room. Comfortable plan for discharge home. 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 She tells me her testing was all negative for malignancy and she was recommended to have routine yearly follow-up. She had been doing well but has had some irregular vaginal bleeding since the procedure. She denies any vomiting, fever, urinary symptoms, diarrhea or constipation. +Suprapubic disomfort Will need labs, UA, pelvic exam, pelvic US Differential Diagnosis Differential Diagnoses: The differential diagnosis associated with the presentation includes cervicitis, uti, pid, toa Admission/Observation Consideration of admission/observation: Escalation of care including admission/observation considered Lab Data [facility] Lab Attestation statement: I reviewed the patient's lab results. 09/24/23 10:11 09/24/23 10:11 Labs: Lab Results 09/24/23 09/24/23 Range/Units 10:11 12:21 WBC 13.6 H (4.8-10.8) X10*3/uL RBC 5.01 (4.20-5.50) X10*6/uL Hgb 13.1 (12.0-16.0) g/dl Hct 40.7 (37.0-47.0) % MCV 81.2 (80.0-98.0) fL MCH 26.1 L (27.0-33.0) pg MCHC 32.2 (31.0-35.0) g/dl RDW 15.1 (11.0-16.0) % Plt Count 365 (160-400) X10*3/uL MPV 9.3 L (9.4-12.3) fL Immature Gran % (Auto) 0.6 H (0.0-0.4) % Neut % (Auto) 76.9 H (45-73) % Lymph % (Auto) 15.0 L (20-40) % [place] % (Auto) 5.0 (2-11) % Eos % (Auto) 1.9 (0-4) % Baso % (Auto) 0.6 (0-2) % Lymph # (Auto) 2.0 (1.2-4.9) X10*3/uL [place] # (Auto) 0.7 (0.1-1.2) X10*3/uL Eos # (Auto) 0.3 (0.0-0.4) X10*3/uL Baso # (Auto) 0.1 (0.0-0.2) X10*3/uL Abs Immat Gran (auto) 0.08 H (0.00-0.03) X10*3/uL Absolute Neuts (auto) 10.4 H (2.0-8.3) x10*3/uL Absolute Nucleated RBC 0.000 (0.0-0.012) X10*3/uL Nucleated RBC % (auto) 0.0 (0.0-0.2) /100WBC Sodium 142 (135-145) mmol/L Potassium 3.7 (3.3-5.1) mmol/L Chloride 107 (96-108) mmol/L Carbon Dioxide 25 (22-29) mmol/L Anion Gap 14 (12-20) BUN 15 (9-16) mg/dL Creatinine 0.68 (0.5-1.4) mg/dL Estim Creat Clear Calc 92.9 Estimated GFR > 60 Random Glucose 111 (60-115) mg/dL Calcium 9.3 (8.4-10.2) mg/dL Total Bilirubin 0.3 (0.0-1.0) mg/dL AST 22 (5-31) U/L ALT 20 (0-31) U/L Alkaline Phosphatase 52 (39-117) U/L Total Protein 7.0 (6.5-8.0) g/dL Albumin 4.1 (3.5-5.0) g/dL Beta HCG, Quant < 2 mIU/mL Urine Color Yellow Urine Appearance Cloudy Urine pH 7.5 (5.0-9.0) Ur Specific [place] 1.020 (1.005-1.025) Urine Protein Negative (Neg-Trace) mg/dL Urine Glucose (UA) Negative (Negative) mg/dL Urine Ketones 15 (Negative) mg/dL Urine Blood Large (3+) H (Negative) Urine Nitrite Negative (Negative) Ur Leukocyte Esterase Small (1+) H (Negative) Urine RBC >20 H (0-2) /HPF Urine WBC 0-5 (0-5) /HPF Ur Squamous Epith Cells 3-5 (0-2) /HPF Urine Bacteria Trace (None Seen) Hyaline Casts 0-2 (0-2) /LPF Mirela species DNA Negative (Negative) Chlam trachomat DNA PCR NOT DETECTED (Not Detect.) Gardnerella DNA Probe Negative (Negative) N.gonorrhoeae DNA (PCR) NOT DETECTED (Not Detect.) Trichomonas DNA Probe Negative (Negative) Independent Interpretation I performed an independent interpretation of an: Ultrasound Interpretation: I independetely reviewed the US and agree with rad report Radiology Impression Discussion of test interpretation with radiology: I have reviewed the radiologist's reading. Radiologist Impression: [address] [id number] Ultrasound Report Signed Patient: Bridget Renae MR#: [id number] : 1975 Acct:[id number] Age/Sex: 48 / F ADM Date: 09/24/23 Loc: HO.ED Attending Dr: Ordering Physician: Cassie Ríos NP Date of Service: 09/24/23 Procedure(s): US pelvic and transvaginal Accession Number(s): [id number] cc: Renaldo,Petey Oliveros MD; Cassie Ríos NP~ EXAMINATION: US PELVIS CLINICAL INFORMATION: Bleeding. Post LEEP COMPARISON: CT of the abdomen and pelvis September 2020 TECHNIQUE: Ultrasound of the pelvis is performed using both transabdominal and transvaginal transducers along with Doppler. Transvaginal imaging is performed due to inadequate visualization transabdominally. FINDINGS: The uterus is anteverted and measures 9.5 x 4.2 x 4.9 cm in dimension. The endometrium does not appear thickened. Double thickness endometrium measures 0.5 cm. There is fluid in the endometrial cavity. No focal uterine lesion. There is hypoechoic soft tissue in the endocervical canal probably representing blood clot measuring 3.3 x 2.0 x 3.1 cm. Ovaries not seen. No fluid in the pelvis. US/US pelvic and transvaginal IMPRESSION: Hypoechoic soft tissue in the endocervical canal probably representing blood clot. Fluid in the endometrial cavity. Discharge Plan Discharge Clinical Impression: Cervicitis Patient Disposition: Home, Self-Care Instructions: Cervicitis (ED) Additional Instructions: please take Tylenol for pain If symptoms continue after 5 days please call your supervisor boilermaking shop to follow-up Return for fever, vomiting, worsening pain Prescriptions: New metronidazole 500 mg tablet 500 mg PO BID 7 Days Qty: 14 0RF doxycycline monohydrate 100 mg capsule 100 mg PO BID Qty: 14 0RF No Action omeprazole magnesium [Prilosec OTC] 20 mg tablet,delayed release (DR/EC) 20 mg PO DAILY cholecalciferol (vitamin D3) 50 mcg (2,000 unit) capsule 50 mcg PO DAILY cranberry 400 mg capsule 400 mg PO DAILY Rx Instructions: administer with a meal folic acid 1 mg tablet 1 mg PO DAILY oxygen-air delivery systems miscellaneous prednisone 5 mg tablet 10 mg PO QAM prednisone 1 mg tablet 4 mg PO QAM benzonatate 100 mg capsule 100 mg PO TID PRN (Reason: cough) Qty: 21 0RF azithromycin 250 mg tablet See Rx Instructions PO .COMPLEX Qty: 6 0RF Rx Instructions: take 500 mg today (day 1), then 250 mg for 4 days (days 2-5) PO fluticasone propionate [Flonase Allergy Relief] 50 mcg/actuation spray,suspension 1 spray intranasal DAILY Qty: 100 0RF Rx Instructions: administer into each nostril Referrals: Petey Macario MD [Primary Care Provider] - 1 week Interventions: ED Discharge Assessment Last Done: 09/24/23 14:56 Discharge Date/Time: 09/24/23 14:57
[2023-09-24 12:24] LABS: HCG Quantitative < 2 mIU/mL
[2023-09-24 12:30] LABS: Appearance Urine Cloudy; Color Urine Yellow; Glucose Urine UA Negative (Negative); Leukocyte Esterase Urine Small (1+) (Negative); Nitrite Urine Negative (Negative); PH 7.5 (5.0-9.0); UMIC TRIGGER UACC YES; Urine Blood Large (3+) (Negative); Urine Ketones 15 mg/dL (Negative); Urine Protein Negative (Neg-Trace)
[2023-09-24 12:54] LABS: Bacteria Urine Trace (None Seen); Hyaline Casts Urine 0-2 /LPF (0-2); RBC Urine >20 /HPF (0-2); UACC Culture Trigger YES; WBC Urine 0-5 /HPF (0-5)
[2023-09-24 13:56] VITALS: BP 128/78; PULSE 73; RESP 16; TEMP 36.9; O2SAT 98
[2023-09-24 14:03] LABS: CT PCR NOT DETECTED (Not Detect.); NG PCR NOT DETECTED (Not Detect.)
[2023-09-24 14:44] LABS: BV Int Neg Control Negative (Negative); BV Int Pos Control Positive (Positive)
== END 2023-09-24 14:57 | disposition home or self-care (01) ==
PROVIDERS: Nurse Practitioner Family; Emergency Provider Emergency Medicine; PCP Internal Medicine
DX: N72 Inflammatory disease of cervix uteri (principal); R10.30 Lower abdominal pain, unspecified; N93.9 Abnormal uterine and vaginal bleeding, unspecified; M54.50 Low back pain, unspecified; Z72.89 Other problems related to lifestyle
CPT/HCPCS: 0353U; 36415; 76830; 76856; 80053; 81001; 84702; 85025; 87086; 87480; 87510; 87660; 99283; 99284

== ENCOUNTER 2023-10-10 15:16 | Outpatient (AMB) | payer OTHER, SELFPAY ==
--- NOTE | 2023-10-10 15:53 | AM.OFFWIN_ITS ---
Intake Vital Signs 10/10/23 15:55 Height 5 ft 3 in Weight 155 lb BMI 27.5 BP 126/82 Blood Pressure Location Lt brachial Position Sitting Pulse 98 Pulse Source Pulse Oximeter Temp 98.1 F Temp Source Oral Pulse Oximetry (%) 95 Oxygen Delivery Method Room Air Intake Visit Reasons: EP rash RT side face LFT arm chest legs Intake Note: Pt is here today for a rash all over her body, pt states she noticed the rashes yesterday. Also its itchy and feels hot. Patient Tobacco Use Status: Never used Tobacco Allergies sulfamethoxazole [From Bactrim] Allergy (Verified 10/10/23 15:53) Rash trimethoprim [From Bactrim] Allergy (Verified 10/10/23 15:53) Rash HPI HPI Comments History of Present Illness Details Patient presents to the walk-in today for sick visit Complaining of diffuse, pruritic rash to arms, chest, right side of her face and both legs. Started last night and has worsened throughout the day today Patient reports she used new laundry detergent for her bed sheets last night and noticed it when she woke this morning She took Benadryl without improvement of her symptoms Taking 7.5 mg of prednisone chronically for dermatomyositis, reports that this rash is very different than the rash she had when she was diagnosed Denies systemic symptoms [facility] Medical History Osteopenia History of renal calculi Anxiety and depression Obesity (BMI 30-39.9) GERD (gastroesophageal reflux disease) Obstructive sleep apnea Cholelithiasis Sleep apnea Fibromyalgia Polymyositis Surgical History S/P laparoscopic cholecystectomy H/O dilation and curettage History of tubal ligation Family History Father Type II diabetes mellitus Mother No problems noted. Maternal Aunt Leukemia Breast cancer Social History Household Members: Spouse Housing: Apartment Do you presently have visiting nurse or other home services: No Alcohol intake: never Patient Tobacco Use Status: Never used Tobacco Second Hand Smoke Exposure: No service: No Current occupational status: disabled Cognitive needs: No Hearing needs: No Vision needs: No Review of Systems Const All systems reviewed & are unremarkable except as noted in HPI and below Physical Exam Vital Signs: Last Vital Signs Temp 98.1 F 10/10/23 15:55 Pulse 98 10/10/23 15:55 BP 126/82 10/10/23 15:55 Pulse Ox 95 10/10/23 15:55 Oxygen Delivery Method Room Air 10/10/23 15:55 BMI result Body Mass Index 27.5 General: awake, alert, oriented. Answers questions appropriately. Fully engaged in examination. Skin: warm, dry, intact. Diffuse, erythematous rash noted face (right side), bilateral arms, chest and legs. + hives HEENT: Normocephalic. Hearing intact. Cardiac: External chest normal in appearance. Respiratory: No cough, audible wheezing or stridor. Speaking in full sentences. No angio or periorbital edema noted Abdomen: without gross distension. MS: No obvious swelling or deformities. Neurological: Oriented to person, place, time and situation. Thought process intact. No gait abnormalities appreciated. Psychiatric: Appropriate mood and affect. Good judgment and insight. Assessment & Plan Assessment & Plan (1) Contact dermatitis: Code(s): L25.9 - Unspecified contact dermatitis, unspecified cause Plan Prednisone 40 mg daily x5 days, then returned to 7.5 mg daily as prescribed by Rheumatology Hydroxyzine 25 mg p.o. b.i.d. as needed for itching Follow-up with primary care doctor or return here for any new or worsening symptoms Go to the ER for any shortness of breath, difficulty breathing, swelling of the lips tongue or throat, weakness, dizziness, syncope or palpitations or chest pain All questions and concerns were answered, patient agrees with the plan Medications: New prednisone 40 mg (2 x 20 mg) PO DAILY 5 days 10 tabs 0RF hydroxyzine HCl 25 mg PO BID PRN 20 tabs 0RF itching Coding Level of Care Code Est Pt Level 3 (14039) Diagnoses Contact dermatitis L25.9
[2023-10-10 15:55] VITALS: BP 126/82; PULSE 98; TEMP 36.7; O2SAT 95; BMI 27.5
== END 2023-10-10 16:32 | disposition home or self-care (01) ==
PROVIDERS: PCP Internal Medicine; Visit Provider Registered Nurse Emergency
DX: L25.9 Unspecified contact dermatitis, unspecified cause (principal)
CPT/HCPCS: 99213